=== PATIENT | female | born 1950 | race Caucasian/White ===

== ENCOUNTER → 2016-09-24 | Outpatient (CLI) | payer MEDICARE | LOC: WI 11:02 | PROVIDERS: ATTEND Nurse Practitioner | DX: Z12.31 Encounter for screening mammogram for malignant neoplasm of breast (principal) | CPT/HCPCS: 77063; G0202; 77067 ==

== ENCOUNTER → 2018-03-26 | Outpatient (CLI) | payer MEDICARE ==
--- NOTE | 2018-03-26 09:09 | WOMENS IMAGING REPORT ---
EXAM DESCRIPTION: 3D SCREENING MAMMO BILAT COMPLETED DATE/TIME: 03/26/2018 8:31 am REASON FOR STUDY: BIALTERAL SCREENING MAMMO 3D/Z12.31 Z12.31 ENCNTR SCREEN MAMMOGRAM FOR MALIGNANT NEOPLASM OF MALIK COMPARISON: 2016 TECHNIQUE: Standard craniocaudal and mediolateral oblique views of each breast recorded using digita l acquisition and breast tomosynthesis. LIMITATIONS: None. FINDINGS: No masses, calcifications or architectural distortion. No areas of suspicion. Read with the assistance of CAD. .[facility] - R2 Cenova Version 1.3 .[facility] - R2 Cenova Version 1.3 .[facility] - R2 Cenova Version 2.4 .[facility] [place] - R2 Cenova Version 2.4 .[facility] - R2 Receivable Executive Version 9.2 IMPRESSION: NORMAL MAMMOGRAM. BIRADS 1. BREAST DENSITY: b. There are scattered areas of fibroglandular density. BIRAD: 1 NEGATIVE RECOMMENDATION: ROUTINE SCREENING COMMENT: The patient has been notified of the results by letter per SA requirements. Additional no tification policies are in place for contacting patient with suspicious or incomplete findings. Quality ID #[id number]: The [employer] recommends an annual screening mammogram for women aged 40 years or over. This facility utilizes a reminder system to ensure that all patients receive reminder letters, and/or direct phone calls for appointments. This includes reminders for routine scr eening mammograms, diagnostic mammograms, or other Breast Imaging Interventions when appropriate. Th is patient will be placed in the appropriate reminder system. The [employer] (ACR) has developed recommendations for screening MRI of the breast s in certain patient populations, to be used in conjunction with mammography. Breast MRI surveillanc e may be appropriate for women with more than 20% lifetime risk of developing breast cancer as deter mined by genetic testing, significant family history of the disease, or history of mantle radiation f or Hodgkins Disease. ACR Practice Guidelines 2008. DBT Technology DBT is a type of tomographic mammography. With conventional mammography, overlapping breast tissue ma y make lesions difficult to detect, even with good compression. DBT uses an x-ray tube that rotates a round the breast, taking images at different angles. These images are then combined to create thin sl ices of the breast that the radiologist can view as a 3D reconstruction. The Home Delivery Service (HDS) unit can perform full-field digital mammograms (2D imaging); or DBT (3D imaging); or both, in a combination mode that quickly performs both the mammogram and the tomosynthesis scan while the breast is still compressed. PQRS 6045F: Fluoroscopic imaging is not utilized for breast tomosynthesis. TECHNICAL DOCUMENTATION: FINDING NUMBER: (1) ASSESSMENT: (1) JOB ID: [id number] [employer]- All Rights Reserved Reading location - IP/workstation name: [facility]
== END ==
LOC: WI 07:53
PROVIDERS: ATTEND Nurse Practitioner
DX: Z12.31 Encounter for screening mammogram for malignant neoplasm of breast (principal)
CPT/HCPCS: 77063; 77067

== ENCOUNTER 2018-05-14 11:46 | Observation (INO) | payer MEDICARE ==
[2018-05-14] MEDS ORDERED: MECLIZINE HCL 25 MG TABLET PO ONE (12:13)
[2018-05-14 12:15] LABS: ABSOLUTE BASOPHILS # (AUTO) 0.1 10^3/uL (0.0-0.2); ABSOLUTE EOSINOPHILS # (AUTO) 0.2 10^3/uL (0.0-0.6); ABSOLUTE MONOCYTES (AUTO) 0.3 10^3/uL (0.1-1.4); ABSOLUTE NEUT (AUTO) 5.7 10^3/uL (1.7-8.2); EOSINOPHILS % (AUTO) 2.5 % (0-6); HEMATOCRIT 41.2 % (36.0-47.0); HEMOGLOBIN 14.3 g/dL (12.0-15.5); LYMPHOCYTES % (AUTO) 23.6 % (13-45); MEAN CORPUSCULAR HEMOGLOBIN 29.8 pg (27.0-33.4); MEAN CORPUSCULAR HGB CONC 34.6 g/dL (32.0-36.0); MEAN CORPUSCULAR VOLUME 86 fl (80-97); MONOCYTES % (AUTO) 3.4 % (3-13); PLATELET COUNT 209 10^3/uL (150-450); RED BLOOD COUNT 4.79 10^6/uL (3.72-5.28); RED CELL DISTRIBUTION WIDTH 13.7 % (11.5-14.0); SEGMENTED NEUTROPHILS % (AUTO) 69.5 % (42-78); TOTAL CELLS COUNTED % (AUTO) 100 %; WHITE BLOOD COUNT 8.3 10^3/uL (4.0-10.5)
[2018-05-14] MEDS ORDERED: ONDANSETRON HCL INJ/PF 4 MG/2 ML SDV IV ONE (12:18)
--- NOTE | 2018-05-14 12:18 | ER Document Report ---
ED General - General Stated Complaint: DIZZY Time Seen by Provider: 05/14/18 12:00 Notes: Patient says that she had a routine blood draw this morning for a six-month checkup and following that she left a friend's house about [address] about 10 minutes home. On the way home, she began to feel "hot". Then, as she arrived home and was getting out of the car, she began to feel nauseated and dizzy and lightheaded. Never had any headache. Did not have any chest pain at that time. She felt as if she was staggering and off balance and had to catch herself, but she did not fall. Called EMS who gave the patient 4 mg of Zofran IV. On the way here in EMS, patient says she began to develop some chest "tightness" and feeling "funny" in the front of the chest. Has not been sick recently. Roby normal last night. No history of any heart disease. TRAVEL OUTSIDE OF THE [place] IN LAST 30 DAYS: No - Related Data Allergies/Adverse Reactions: No Known Allergies Allergy (Verified 05/14/18 14:47) Past Medical History - Social History Smoking Status: Current Every Day Smoker - 1/2 pack/day Family History: Reviewed & Not Pertinent - Past Medical History Cardiac Medical History: Reports: Hx Hypertension Denies: Hx Coronary Artery Disease Pulmonary Medical History: Reports: Hx COPD Neurological Medical History: Denies: Hx Cerebrovascular Accident Endocrine Medical History: Denies: Hx Diabetes Mellitus Type 1, Hx Diabetes Mellitus Type 2 Psychiatric Medical History: Reports: None Past Surgical History: Reports: Hx Tubal Ligation - Immunizations Hx Diphtheria, Pertussis, Tetanus Vaccination: No Review of Systems - Review of Systems Notes: REVIEW OF SYSTEMS: CONSTITUTIONAL : Denies fever. EENT: Denies eye, ear, nose or mouth or throat pain or other symptoms. CARDIOVASCULAR: Denies chest pain, but see HPI. RESPIRATORY: Denies cough, chest congestion, or shortness of breath. GASTROINTESTINAL: Denies abdominal pain but does have nausea, vomiting, no diarrhea GENITOURINARY: Denies difficulty or painful urinating, urinary frequency, blood in urine. MUSCULOSKELETAL: Denies back or neck pain. Denies joint pain or swelling. SKIN: Denies rash or skin lesions. NEUROLOGICAL: Denies LOC or altered mental status. Denies headache. Denies sensory loss or motor deficits. See HPI. ALL OTHER SYSTEMS REVIEWED AND NEGATIVE. Physical Exam - Vital signs Vitals: Pulse Ox 96 05/14/18 12:14 Interpretation: Normal - Notes Notes: PHYSICAL EXAMINATION: GENERAL: Well-appearing, in no acute distress. HEAD: Atraumatic, normocephalic. EYES: Pupils equal round and reactive to light, extraocular movements intact. No nystagmus. ENT: oropharynx clear without exudates. Moist mucous membranes. NECK: Normal range of motion, supple. No carotid bruits heard. LUNGS: Breath sounds clear and equal bilaterally. HEART: Regular rate and rhythm without murmurs. ABDOMEN: Soft, nontender. No guarding or rebound. No masses. BACK: No tenderness throughout entire back. EXTREMITIES: Normal range of motion without pain. NEUROLOGICAL: Normal speech, when patient was set up to get into a hospital gown, she began to vomit. Normal sensory, motor, and reflex exams. Awake, alert, and oriented x3. Cranial nerves normal. No facial asymmetry. PSYCH: Normal mood, normal affect. SKIN: Warm, dry, no rashes. Course - Re-evaluation Re-evalutation: 05/14/18 15:30 We got the patient up and have her ambulate to the restroom and obtain a urine specimen. She returned to bed without help. However, she says she is extremely dizzy when she tries to move her head or get up and walk. Does not have any headache. Does not have any chest tightness anymore. Discussed the results of her workup with the patient and she expressed apprehension and concern about going home and being alone tonight. I think she merits observation at least for overnight for possible undetected stroke or cardiac event. I am repeating her troponin and EKG at this time. I have spoken with the hospitalist who will admit the patient for further evaluation. - Vital Signs Vital signs: Temp Pulse Resp BP Pulse Ox 62 20 135/77 H 96 05/14/18 15:12 05/14/18 15:26 05/14/18 15:26 05/14/18 15:26 - Laboratory Result Diagrams: 05/14/18 11:15 05/14/18 11:15 Laboratory results interpreted by me: 05/14/18 11:15 Glucose 168 H - Diagnostic Test Radiology reviewed: Image reviewed, Reports reviewed - CT scan of the brain is normal. No evidence of stroke. - EKG Interpretation by Me EKG shows normal: Sinus rhythm Rate: Normal Rhythm: NSR Additional EKG results interpreted by me: 05/14/18 15:30 EKG shows some nonspecific ST, T abnormalities of the anterior leads. No STEMI. Discharge - Discharge Clinical Impression: Dizziness, Vertigo, Nausea and vomiting, TIA (transient ischemic attack) Condition: Stable Disposition: ADMITTED OBSERVATION Admitting Provider: Hospitalist Unit Admitted: IMCU Referrals: HANK PUENTES FNP [Primary Care Provider] - Follow up as needed
[2018-05-14 12:36] LABS: ALANINE AMINOTRANSFERASE 25 U/L (9-52); ALBUMIN 4.3 g/dL (3.5-5.0); ALKALINE PHOSPHATASE 92 U/L (38-126); ANION GAP 10 (5-19); ASPARTATE AMINO TRANSFERASE 17 U/L (14-36); BILIRUBIN,DIRECT 0.2 mg/dL (0.0-0.4); BILIRUBIN,TOTAL 0.8 mg/dL (0.2-1.3); BLOOD UREA NITROGEN 18 mg/dL (7-20); CALCIUM 9.3 mg/dL (8.4-10.2); CARBON DIOXIDE 28 mmol/L (22-30); CHLORIDE 102 mmol/L (98-107); CREATINE KINASE 41 U/L (30-135); GLUCOSE 168 mg/dL (75-110); POTASSIUM 3.7 mmol/L (3.6-5.0); SODIUM 140.1 mmol/L (137-145); TOTAL PROTEIN 7.2 g/dL (6.3-8.2)
[2018-05-14 12:49] LABS: CREATINE KINASE MB 0.68 ng/mL (<4.55); TROPONIN I < 0.012 ng/mL
--- NOTE | 2018-05-14 13:30 | RADIOLOGY REPORT (SQ) ---
EXAM DESCRIPTION: CT HEAD WITHOUT COMPLETED DATE/TIME: 05/14/2018 1:22 pm REASON FOR STUDY: Dizzy, off balance, nausea and vomiting COMPARISON: None. TECHNIQUE: Axial images acquired through the brain without intravenous contrast. Images reviewed wi th bone, brain and subdural windows. Additional sagittal and coronal reconstructions were generated. Images stored on PACS. All CT scanners at this facility use dose modulation, iterative reconstruction, and/or weight based d osing when appropriate to reduce radiation dose to as low as reasonably achievable (ALARA). [facility]: Dose Right [facility]: CareDose [facility]: Dose Right [facility]: Teradose 4D [facility]: Smart Shareholder InSite RADIATION DOSE: CT Rad equipment meets quality standard of care and radiation dose reduction techniq ues were employed. CTDIvol: 53.2 mGy. DLP: 1017 mGy-cm. mGy. LIMITATIONS: None. FINDINGS: VENTRICLES: Normal size and contour. CEREBRUM: No masses. No hemorrhage. No midline shift. No evidence for acute infarction. Normal gra y/white matter differentiation. No areas of low density in the white matter. CEREBELLUM: No masses. No hemorrhage. No alteration of density. No evidence for acute infarction. EXTRAAXIAL SPACES: No fluid collections. No masses. ORBITS AND GLOBE: No intra- or extraconal masses. Normal contour of globe without masses. CALVARIUM: No fracture. PARANASAL SINUSES: No fluid or mucosal thickening. SOFT TISSUES: No mass or hematoma. OTHER: No other significant finding. IMPRESSION: No acute intracranial pathology. EVIDENCE OF ACUTE STROKE: NO. COMMENT: Quality ID # 436: Final reports with documentation of one or more dose reduction techniques (e.g., Automated exposure control, adjustment of the mA and/or kV according to patient size, use of iterative reconstruction technique) TECHNICAL DOCUMENTATION: JOB ID: [id number] [employer]- All Rights Reserved Reading location - IP/workstation name: [email or web address]
[2018-05-14 15:13] LABS: APPEARANCE,URINE CLEAR; BILIRUBIN,URINE NEGATIVE (NEGATIVE); COLOR,URINE YELLOW; GLUCOSE, URINE NEGATIVE (NEGATIVE); KETONES,URINE NEGATIVE (NEGATIVE); LEUKOCYTE ESTERASE,URINE NEGATIVE (NEGATIVE); NITRITE,URINE NEGATIVE (NEGATIVE); PROTEIN,URINE NEGATIVE (NEGATIVE); URINE SPECIFIC GRAVITY 1.014; UROBILINOGEN,URINE NEGATIVE mg/dL (<2.0)
[2018-05-14] MEDS ORDERED: TRAMADOL HCL 50 MG TABLET PO PRN (16:18)
[2018-05-14] MEDS ORDERED: TEMAZEPAM 15 MG CAPSULE PO PRN (16:26)
[2018-05-14] MEDS ORDERED: DOCUSATE SODIUM 100 MG CAPSULE PO PRN (16:26)
[2018-05-14] MEDS ORDERED: ONDANSETRON HCL INJ/PF 4 MG/2 ML SDV IV PRN (16:26)
[2018-05-14] MEDS ORDERED: MAGNESIUM HYDROXIDE SUSP 30 ML UDCUP PO PRN (16:26)
[2018-05-14] MEDS ORDERED: ACETAMINOPHEN 325 MG TABLET PO PRN (16:26)
[2018-05-14] MEDS ORDERED: DIAZEPAM 5 MG TABLET PO PRN (16:27)
[2018-05-14] MEDS ORDERED: MECLIZINE HCL 25 MG TABLET PO PRN (16:27)
[2018-05-14] MEDS ORDERED: NICOTINE 14 MG/24 HR PATCH.TD24 TD PRN (16:49)
[2018-05-14] MEDS ORDERED: IPRATROPIUM/ALBUTEROL 0.5-2.5 MG/3 ML AMPUL NEB PRN (16:49)
--- NOTE | 2018-05-14 16:50 | PDOC H&P ---
History of Present Illness Admission Date/PCP: PADMINI BOWLING Patient complains of: dizziness History of Present Illness: ROVERTO JOEL is a 68 year old female with a past medical history of hypertension, COPD, and tobacco abuse with continuous use. The patient presented to the emergency department today via EMS with a complaint of sudden onset dizziness associated with nausea and vomiting x1. The patient had been fasting today for lab work at her primary care providers. She reports that after her appointment , she went to family members house where she became flushed and nauseated. She decided to drive home but during her drive home became dizzy. When she arrived home, she experienced near syncope when standing up associated with nausea and emesis x1. She states that she sat down and kept her eyes closed with slight improvement in her dizziness but continued to feel ill and therefore called EMS. The patient has been provided Zofran and meclizine with improvement in her symptoms. She reports that she continues to feel lightheaded and dizzy when standing, but otherwise is no longer having vertigo. She does complain of slight nausea while at rest, though this is also improved. She denies recent illnesses, fever, chills, chest pain, palpitations, and focal deficits. Evaluation in the emergency department is unremarkable with a normal laboratory evaluation, negative troponins x2, EKG demonstrating normal sinus rhythm, and normal head CT. The patient was referred to the hospitalist service for admission and management of the above stated complaints. Past Medical History Cardiac Medical History: Reports: Hyperlipidema, Hypertension Denies: Coronary Artery Disease, Myocardial Infarction Pulmonary Medical History: Reports: Chronic Obstructive Pulmonary Disease (COPD) EENT Medical History: Reports: None Endocrine Medical History: Reports: Obesity Denies: Diabetes Mellitus Type 1, Diabetes Mellitus Type 2, Hypothyroidism Renal/ Medical History: Reports: None Malignancy Medical History: Reports: None GI Medical History: Reports: None Musculoskeltal Medical History: Reports: None Skin Medical History: Reports: None Psychiatric Medical History: Reports: Tobacco Dependency Traumatic Medical History: Reports: None Hematology: Reports: None Infectious Medical History: Reports: None Past Surgical History Past Surgical History: Reports: Tubal Ligation Social History Information Source: Patient Lives with: Alone Smoking Status: Current Every Day Smoker Cigarettes Packs Per Day: 0.5 Number of Years Smokin Frequency of Alcohol Use: None Hx Recreational Drug Use: No Hx Prescription Drug Abuse: No - Advance Directive Resuscitation Status: Full Code Surrogate healthcare decision maker:: The patient's niece, Jamee Del Valle, Family History Family History: CAD, CVA, DM, Hyperlipidemia, Hypertension, Malignancy, Thyroid Disfunction Parental Family History Reviewed: Yes Children Family History Reviewed: Yes Sibling(s) Family History Reviewed.: Yes Medication/Allergy Home Medications: Albuterol Sulfate [Proair Hfa Inhalation Aerosol 8.5 gm Mdi] 2 puff IH Q6HP PRN 05/14/18 Amlodipine Besylate [Norvasc 5 mg Tablet] 5 mg PO DAILY 05/14/18 Aspirin [Ecotrin 81 mg EC Tablet] 81 mg PO DAILY 05/14/18 Atenolol [Tenormin 50 mg Tablet] 50 mg PO BID 05/14/18 Fluticasone/Salmeterol [Advair 250-50 Diskus 14 Dose/Diskus] 1 inh IH Q12 Losartan/Hydrochlorothiazide [Losartan-Hctz 100-25 mg Tab] 1 each PO DAILY 05/14 Meloxicam [Mobic] 15 mg PO DAILY 05/14/18 Tiotropium Caputa [Spiriva Handihaler 5 Cap/Kit (18 Mcg/Cap)] 2 cap IH DAILY Allergies/Adverse Reactions: No Known Allergies Allergy (Verified 05/14/18 14:47) Review of Systems Constitutional: ABSENT: chills, fever(s), headache(s), weight gain, weight loss Eyes: ABSENT: visual disturbances Ears: ABSENT: hearing changes Cardiovascular: ABSENT: chest pain, dyspnea on exertion, edema, orthropnea, palpitations Respiratory: ABSENT: cough, hemoptysis Gastrointestinal: PRESENT: nausea, vomiting. ABSENT: abdominal pain, constipation, diarrhea, hematemesis, hematochezia Genitourinary: ABSENT: dysuria, hematuria Musculoskeletal: ABSENT: joint swelling Integumentary: ABSENT: rash, wounds Neurological: PRESENT: dizziness, vertigo. ABSENT: abnormal gait, abnormal speech, confusion, focal weakness, syncope Psychiatric: ABSENT: anxiety, depression, homidical ideation, suicidal ideation Endocrine: ABSENT: cold intolerance, heat intolerance, polydipsia, polyuria Hematologic/Lymphatic: ABSENT: easy bleeding, easy bruising Physical Exam Vital Signs: Temp Pulse Resp BP Pulse Ox 62 20 146/78 H 96 1206/18 15:12 05/14/18 16:07 05/14/18 16:07 05/14/18 16:07 Intake & Output 05/13/18 05/14/18 05/15/18 06:59 06:59 06:59 Weight 102.058 kg General appearance: PRESENT: no acute distress, cooperative, well-developed, well-nourished - Overweight Head exam: PRESENT: atraumatic, normocephalic Eye exam: PRESENT: conjunctiva pink, EOMI, PERRLA. ABSENT: nystagmus, scleral icterus Ear exam: PRESENT: normal external ear exam Mouth exam: PRESENT: moist, tongue midline Neck exam: ABSENT: carotid bruit, JVD, lymphadenopathy, thyromegaly Respiratory exam: PRESENT: clear to auscultation nathalie, symmetrical, unlabored. ABSENT: rales, rhonchi, wheezes Cardiovascular exam: PRESENT: RRR, +S2. ABSENT: diastolic murmur, rubs, systolic murmur Pulses: PRESENT: normal dorsalis pedis pul Vascular exam: PRESENT: normal capillary refill GI/Abdominal exam: PRESENT: normal bowel sounds, soft. ABSENT: distended, guarding, mass, organolmegaly, rebound, tenderness Rectal exam: PRESENT: deferred Extremities exam: PRESENT: full ROM. ABSENT: calf tenderness, clubbing, pedal edema Neurological exam: PRESENT: alert, awake, oriented to person, oriented to place , oriented to time, oriented to situation, reflexes normal, CN II-XII grossly intact. ABSENT: motor sensory deficit Psychiatric exam: PRESENT: appropriate affect, normal mood. ABSENT: homicidal ideation, suicidal ideation Skin exam: PRESENT: dry, intact, warm. ABSENT: cyanosis, rash Results Laboratory Results: 05/14/18 11:15 05/14/18 11:15 05/14/18 05/14/18 05/14/18 11:15 11:15 14:57 WBC 8.3 RBC 4.79 Hgb 14.3 Hct 41.2 MCV 86 MCH 29.8 MCHC 34.6 RDW 13.7 Plt Count 209 Seg Neutrophils % 69.5 Lymphocytes % 23.6 Monocytes % 3.4 Eosinophils % 2.5 Basophils % 1.0 Absolute Neutrophils 5.7 Absolute Lymphocytes 2.0 Absolute Monocytes 0.3 Absolute Eosinophils 0.2 Absolute Basophils 0.1 Sodium 140.1 Potassium 3.7 Chloride 102 Carbon Dioxide 28 Anion Gap 10 BUN 18 Creatinine 0.72 Est GFR ( Amer) > 60 Est GFR (Non-Af Amer) > 60 Glucose 168 H Calcium 9.3 Total Bilirubin 0.8 AST 17 ALT 25 Alkaline Phosphatase 92 Total Protein 7.2 Albumin 4.3 Urine Color YELLOW Urine Appearance CLEAR Urine pH 7.0 Ur Specific [place] 1.014 Urine Protein NEGATIVE Urine Glucose (UA) NEGATIVE Urine Ketones NEGATIVE Urine Blood NEGATIVE Urine Nitrite NEGATIVE Ur Leukocyte Esterase NEGATIVE Urine WBC (Auto) 2 Urine RBC (Auto) 0 05/14/18 05/14/18 05/14/18 11:15 11:15 15:35 Creatine Kinase 41 CK-MB (CK-2) 0.68 Troponin I < 0.012 < 0.012 Impressions: Head CT 05/14/18 12:18 IMPRESSION: No acute intracranial pathology. EVIDENCE OF ACUTE STROKE: NO. Assessment & Plan - Diagnosis (1) Dizziness Is this a current diagnosis for this admission?: Yes Plan: The patient presented with sudden onset dizziness that worsens with movement/ standing and is associated with nausea and vomiting after fasting for routine lab work this morning. She has no focal deficits or facial asymmetry. EKG demonstrates normal sinus rhythm. Head CT is benign. Laboratory evaluation is unremarkable including troponins x2. Due to the patient's persistent symptoms following meclizine and Zofran, she was referred to the hospitalist service for admission and monitoring for TIA versus underlying cardiac causes. She is admitted to [facility] on continuous cardiac telemetry with TIA/CVA protocols in place. She is provided daily statin and aspirin therapy. We will obtain a carotid Doppler and echocardiogram. We will request lab work from her primary care's office as she had routine lab work done this morning (likely lipid panel, TSH, and A1c were assessed). PT evaluation. Will hold on brain MRI at this time; if vertigo persists, will obtain in the morning. Meclizine as needed, p.o. Valium for severe symptoms or symptoms unrelieved by meclizine. Gentle IV fluids. Antiemetics as needed. Fall precautions. (2) TIA (transient ischemic attack) Is this a current diagnosis for this admission?: Yes Plan: The patient has a benign exam (negative for dysdiadochokinesis and nml finger-to -nose; though with (+) Romberg) and unremarkable workup; her dizziness is likely vertigo related to her fasting for a labs. However, as her symptoms persist following p.o. intake, anti-emetics, and meclizine, she will be monitored for symptoms of TIA/CVA (specifically Cerebellar). Plan as above. (3) Hypertension Is this a current diagnosis for this admission?: Yes Plan: Normotensive at present; the patient's home medication regimen will be continued once reconciled. We will obtain orthostatic blood pressures. (4) COPD (chronic obstructive pulmonary disease) Is this a current diagnosis for this admission?: Yes Plan: Without exacerbation; will resume the patient's home dose Advair once reconciled. Supplemental oxygen as needed to maintain saturations greater than 89%. As needed nebulizer treatments. (5) Tobacco dependence Is this a current diagnosis for this admission?: Yes Plan: Smoking cessation is encouraged; nicotine replacement therapies are provided. (6) Nausea and vomiting Qualifiers: Vomiting Intractability: non-intractable Is this a current diagnosis for this admission?: Yes Plan: Secondary to #1; meclizine and/or Valium as needed for management of dizziness. Antiemetics as needed. Gentle IV fluids. - Time Time Spent: 50 to 70 Minutes Smoking Cessation Education: 3 to 10 minutes Medications reviewed and adjusted accordingly: Yes Anticipated discharge: Home Within: within 24 hours
[2018-05-14] MEDS: NORMAL SALINE 1000 ML 1,000 ML IV PRN (17:32)
[2018-05-14] MEDS ORDERED: ATENOLOL 50 MG TABLET PO SCH (18:00)
[2018-05-14] MEDS: FAMOTIDINE 20 MG TABLET PO SCH (21:48)
[2018-05-14] MEDS: HEPARIN SOD (PORCINE) 5,000 UNIT/ML 1 ML SYRINGE SUBCUT SCH (21:50)
[2018-05-14] MEDS ORDERED: ATORVASTATIN CALCIUM 80 MG TABLET PO SCH (22:00)
--- NOTE | 2018-05-14 22:38 | EKG REPORT ---
SEVERITY:- BORDERLINE ECG - SINUS RHYTHM BORDERLINE T ABNORMALITIES, ANT-LAT LEADS : Confirmed by: Perry Mendoza 14-May-2018 22:37:59
--- NOTE | 2018-05-14 22:38 | EKG REPORT ---
SEVERITY:- ABNORMAL ECG - SINUS RHYTHM NONSPECIFIC T ABNORMALITIES, ANT-LAT LEADS : Confirmed by: Perry Mendoza 14-May-2018 22:37:54
[2018-05-15] MEDS: HEPARIN SOD (PORCINE) 5,000 UNIT/ML 1 ML SYRINGE SUBCUT SCH ×2 (05:15→15:52)
[2018-05-15 06:14] LABS: HEMATOCRIT 39.1 % (36.0-47.0); HEMOGLOBIN 13.5 g/dL (12.0-15.5); MEAN CORPUSCULAR HEMOGLOBIN 29.5 pg (27.0-33.4); MEAN CORPUSCULAR HGB CONC 34.6 g/dL (32.0-36.0); MEAN CORPUSCULAR VOLUME 85 fl (80-97); PLATELET COUNT 203 10^3/uL (150-450); RED BLOOD COUNT 4.58 10^6/uL (3.72-5.28); RED CELL DISTRIBUTION WIDTH 13.3 % (11.5-14.0); WHITE BLOOD COUNT 7.7 10^3/uL (4.0-10.5)
[2018-05-15 06:34] LABS: ANION GAP 12 (5-19); BLOOD UREA NITROGEN 16 mg/dL (7-20); CARBON DIOXIDE 27 mmol/L (22-30); CHLORIDE 103 mmol/L (98-107); GLUCOSE 121 mg/dL (75-110); POTASSIUM 3.9 mmol/L (3.6-5.0); SODIUM 142.2 mmol/L (137-145)
--- NOTE | 2018-05-15 08:13 | RADIOLOGY REPORT (SQ) ---
EXAM DESCRIPTION: CAROTID DOPPLER COMPLETED DATE/TIME: 05/14/2018 8:44 pm REASON FOR STUDY: TIA, Vertigo COMPARISON: None. TECHNIQUE: Grayscale ultrasound, Doppler velocity and spectra, and color Doppler images acquired of the extra-cranial carotid and vertebral arteries. Images stored on PACS. LIMITATIONS: None. FINDINGS: RIGHT CAROTID CCA Velocities: Within normal limits. ICA Velocities Peak systolic 1.31 m/s. End diastolic 0.24 m/s. Proximal ICA/CCA peak systolic ratio 1.2. There is soft plaque in the carotid bulb. LEFT CAROTID CCA Velocities: Within normal limits. ICA Velocities Peak systolic 0.99 m/s. End diastolic 0.22 m/s. Proximal ICA/CCA peak systolic ratio 1.3. Spectra normal. No significant plaque. VERTEBRAL ARTERIES: Antegrade flow. Normal waveforms. SUBCLAVIAN ARTERIES: No finding. OTHER: No other significant finding. IMPRESSION: Soft plaque is noted in the right carotid bulb and proximal ICA. No hemodynamically sig nificant stenosis. COMMENT: Quality ID #[id number]: Velocity criteria are extrapolated from the diameter data as defined by t he Society of Radiologists in Ultrasound Consensus Conference. Radiology 2003: 229; 340-346. TECHNICAL DOCUMENTATION: JOB ID: [id number] [employer]- All Rights Reserved Reading location - IP/workstation name: [email or web address]
[2018-05-15] MEDS: NORMAL SALINE 1000 ML 1,000 ML IV PRN (09:47)
[2018-05-15] MEDS: FAMOTIDINE 20 MG TABLET PO SCH (09:47)
[2018-05-15] MEDS ORDERED: AMLODIPINE BESYLATE 5 MG TABLET PO SCH (10:00)
[2018-05-15] MEDS ORDERED: ASPIRIN 81 MG TABLET, ENT COATED PO SCH (10:00)
[2018-05-15] MEDS ORDERED: (PENDING PHARMACY ID) (Losartan/Hydrochlorothiazide [Losartan-Hctz 100-25 Mg Tab] 1 EACH) PO SCH (10:00)
--- NOTE | 2018-05-15 15:02 | RADIOLOGY REPORT (SQ) ---
EXAM DESCRIPTION: CTA NECK; CTA HEAD COMPLETED DATE/TIME: 05/15/2018 2:42 pm REASON FOR STUDY: dizziness, TIA/CVA work up COMPARISON: CT brain 05/14/2018 TECHNIQUE: Axial dynamic scanning technique with dynamic contrast enhancement through the extra-steam crane operator nial carotid and vertebral arteries. Multiplanar reconstruction. 3-D MIPS and Volume-rendered imag es acquired at the workstation and saved to PACS. Images are reviewed in soft tissue, bone, lung w indows. Axial dynamic scanning technique with dynamic contrast enhancement through the intra-cranial carotid and vertebral arteries. Multiplanar reconstruction. 3-D MIPS and Volume-rendered images acquired at the workstation and saved to PACS. Images are reviewed in soft tissue, bone, lung windows. All CT scanners at this facility use dose modulation, iterative reconstruction, and/or weight based d osing when appropriate to reduce radiation dose to as low as reasonably achievable (ALARA). [facility]: Dose Right [facility]: CareDose [facility]: Dose Right [facility]: Teradose 4D [facility]: [employer] CONTRAST TYPE AND DOSE: contrast/concentration: Isovue 350.00 mg/ml; Total Contrast Delivered: 80.0 ml; Total Saline Delivered: 75.0 ml RENAL FUNCTION: Creatinine 0.74 LIMITATIONS: None. FINDINGS: AORTIC ARCH: Origins of the brachiocephalic artery, left common carotid artery, left subcl reji artery and left vertebral artery off the aortic arch are widely patent. Bilateral subclavian a rteries are patent. No dissection. RIGHT CAROTIDS: Patent common carotid artery. Calcific plaque at the right carotid bifurcation with about 50% stenosis proximal right ICA best shown on coronal image 62 and sagittal reconstruction imag es 47-49. Cervical internal carotid artery widely patent. No dissection. RIGHT VERTEBRAL: Non dominant, origin not well seen. Remainder of the right vertebral artery is ng nt without dissection LEFT CAROTIDS: Patent common carotid artery. Calcific plaque at the left carotid bifurcation without flow significant stenosis. Left cervical internal carotid artery widely patent. No dissection LEFT VERTEBRAL: Patent. No dissection. NECK SOFT TISSUES: No other significant finding. No neck masses or adenopathy. Salivary and thyroid glands unremarkable. Incidental finding of high-grade right C3-4 foraminal narrowing from facet and uncovertebral hypertrophy. Obstructive lung disease at the [place] CTA: ANTERIOR CIRCULATION: No stenosis, vascular malformation, or aneurysm POSTERIOR CIRCULATION: No stenosis, vascular malformation or aneurysm BRAIN IN THE FIELD OF VIEW: Unremarkable. No masses or abnormal contrast enhancement. Ventricles e xtra-axial CSF spaces unremarkable OTHER FINDINGS: Paranasal sinuses are clear. OTHER: 3-D reconstructions confirm findings. IMPRESSION: No flow significant stenosis of the carotid bifurcations. No stenosis vascular malformation or aneurysm in the [place] COMMENT: Quality ID #[id number]: Measurements of distal internal carotid diameter were used as the denomina tor for stenosis measurement. TECHNICAL DOCUMENTATION: JOB ID: [id number] Quality ID # [id number]: Final reports with documentation of one or more dose reduction techniques (e.g., Au tomated exposure control, adjustment of the mA and/or kV according to patient size, use of iterative reconstruction technique) 2010 [employer]- All Rights Reserved Reading location - IP/workstation name: [email or web address]
--- NOTE | 2018-05-15 15:02 | RADIOLOGY REPORT (SQ) ---
EXAM DESCRIPTION: CTA NECK; CTA HEAD COMPLETED DATE/TIME: 05/15/2018 2:42 pm REASON FOR STUDY: dizziness, TIA/CVA work up COMPARISON: CT brain 05/14/2018 TECHNIQUE: Axial dynamic scanning technique with dynamic contrast enhancement through the extra-traveling crane operator nial carotid and vertebral arteries. Multiplanar reconstruction. 3-D MIPS and Volume-rendered imag es acquired at the workstation and saved to PACS. Images are reviewed in soft tissue, bone, lung w indows. Axial dynamic scanning technique with dynamic contrast enhancement through the intra-cranial carotid and vertebral arteries. Multiplanar reconstruction. 3-D MIPS and Volume-rendered images acquired at the workstation and saved to PACS. Images are reviewed in soft tissue, bone, lung windows. All CT scanners at this facility use dose modulation, iterative reconstruction, and/or weight based d osing when appropriate to reduce radiation dose to as low as reasonably achievable (ALARA). [facility]: Dose Right [facility]: CareDose [facility]: Dose Right [facility]: Teradose 4D [facility]: [employer] CONTRAST TYPE AND DOSE: contrast/concentration: Isovue 350.00 mg/ml; Total Contrast Delivered: 80.0 ml; Total Saline Delivered: 75.0 ml RENAL FUNCTION: Creatinine 0.74 LIMITATIONS: None. FINDINGS: AORTIC ARCH: Origins of the brachiocephalic artery, left common carotid artery, left subcl reji artery and left vertebral artery off the aortic arch are widely patent. Bilateral subclavian a rteries are patent. No dissection. RIGHT CAROTIDS: Patent common carotid artery. Calcific plaque at the right carotid bifurcation with about 50% stenosis proximal right ICA best shown on coronal image 62 and sagittal reconstruction imag es 47-49. Cervical internal carotid artery widely patent. No dissection. RIGHT VERTEBRAL: Non dominant, origin not well seen. Remainder of the right vertebral artery is ng nt without dissection LEFT CAROTIDS: Patent common carotid artery. Calcific plaque at the left carotid bifurcation without flow significant stenosis. Left cervical internal carotid artery widely patent. No dissection LEFT VERTEBRAL: Patent. No dissection. NECK SOFT TISSUES: No other significant finding. No neck masses or adenopathy. Salivary and thyroid glands unremarkable. Incidental finding of high-grade right C3-4 foraminal narrowing from facet and uncovertebral hypertrophy. Obstructive lung disease at the apices [place] CTA: ANTERIOR CIRCULATION: No stenosis, vascular malformation, or aneurysm POSTERIOR CIRCULATION: No stenosis, vascular malformation or aneurysm BRAIN IN THE FIELD OF VIEW: Unremarkable. No masses or abnormal contrast enhancement. Ventricles e xtra-axial CSF spaces unremarkable OTHER FINDINGS: Paranasal sinuses are clear. OTHER: 3-D reconstructions confirm findings. IMPRESSION: No flow significant stenosis of the carotid bifurcations. No stenosis vascular malformation or aneurysm in the [place] COMMENT: Quality ID #[id number]: Measurements of distal internal carotid diameter were used as the denomina tor for stenosis measurement. TECHNICAL DOCUMENTATION: JOB ID: [id number] Quality ID # 436: Final reports with documentation of one or more dose reduction techniques (e.g., Au tomated exposure control, adjustment of the mA and/or kV according to patient size, use of iterative reconstruction technique) 2010 [employer]- All Rights Reserved Reading location - IP/workstation name: [email or web address]
[2018-05-15 16:12] VITALS: BP 114/61
--- NOTE | 2018-05-16 16:10 | PDOC DISCHARGE SUMMARY ---
General - Admit/Disc Date/PCP Admission Date/Primary Care Provider: 05/14/18 16:41 HANK PUENTES, [employer] Discharge Date: 05/15/18 - Discharge Diagnosis (1) Dizziness Is this a current diagnosis for this admission?: Yes Summary: The patient presented with sudden onset dizziness that worsens with movement/ standing and is associated with nausea and vomiting after fasting for routine lab work. She has no focal deficits or facial asymmetry. EKG demonstrated normal sinus rhythm. Head CT is benign. Laboratory evaluation is unremarkable including troponins x2. Carotid Doppler noted a soft plaque to the right carotid bulb and proximal ICA without hemodynamically significant stenosis. Follow-up head and neck CTA revealed a calcified plaque at the right carotid bifurcation with about 50% stenosis proximal right ICA. No significant flow stenosis of the carotid bifurcations. No stenosis vascular malformations or aneurysm to the [place]. The patient was offered a MRI of the brain to further evaluate for CVA. She declined due to significant claustrophobia. The patient was admitted to [facility] on continuous cardiac telemetry with TIA/CVA protocols in place. She was provided daily statin and aspirin therapy. We received routine laboratory work from her primary care provider's office; acceptable chemistries, A1c, and lipid panel. Physical therapy met with the patient; no recommendations for further therapy. She was provided meclizine while in the emergency department for her dizziness; she did not require any further dosing. She reports that her symptoms resolved spontaneously overnight and on the morning of discharge felt back to her normal self. At time of discharge, the patient was in stable condition, asymptomatic, and ambulatory without assistance. She is encouraged to stop smoking. She is provided prescriptions for daily aspirin, Lipitor 20 mg daily, and NicoDerm patches. She is advised to keep her follow-up appointment already scheduled for her primary care provider's office next week. (2) TIA (transient ischemic attack) Is this a current diagnosis for this admission?: Yes Summary: The patient has a benign exam (negative for dysdiadochokinesis and nml finger-to -nose; though with (+) Romberg) and unremarkable workup; her dizziness is likely vertigo related to her fasting for a labs. She was admitted and monitored for TIA/CVA symptoms secondary to multiple risk factors: Age, obesity, hypertension, smoking. Fortunately, her workup was benign. She was educated on risk modification; discontinue smoking, take daily aspirin and statin therapy, begin a daily walking regiment for weight reduction. She was encouraged to follow-up with her primary care provider as already scheduled for next week. She is instructed to return to the emergency department for any concerning symptoms. (3) Hypertension Is this a current diagnosis for this admission?: Yes Summary: Normotensive on her outpatient regiment. (4) COPD (chronic obstructive pulmonary disease) Is this a current diagnosis for this admission?: Yes Summary: Without exacerbation. The patient's home dose of Advair was continued. (5) Tobacco dependence Is this a current diagnosis for this admission?: Yes Summary: Smoking cessation strongly encouraged; she was provided prescription for NicoDerm at discharge. (6) Nausea and vomiting Is this a current diagnosis for this admission?: Yes Summary: Resolved; secondary to #1. - Additional Information Resuscitation Status: Full Code Discharge Diet: Cardiac Discharge Activity: Activity As Tolerated, Balance Activity w/Rest, Slowly Increase Activity Prescriptions: Aspirin [Ecotrin 81 mg EC Tablet] 81 mg PO DAILY #90 tabec Atorvastatin Calcium [Lipitor 20 mg Tablet] 20 mg PO QHS #30 tablet Nicotine [Nicoderm 14 mg/24 Hr Transdermal Patch] 1 each TD DAILYP PRN #30 patch.td24 PRN Reason: Home Medications: Albuterol Sulfate [Proair HFA Inhalation Aerosol 8.5 gm MDI] 2 puff IH Q6HP PRN 05/14/18 Amlodipine Besylate [Norvasc 5 mg Tablet] 5 mg PO DAILY 05/14/18 Aspirin [Ecotrin 81 mg EC Tablet] 81 mg PO DAILY 05/14/18 Atenolol [Tenormin 50 mg Tablet] 50 mg PO Q12 05/14/18 Fluticasone/Salmeterol [Advair 250-50 Diskus 14 Dose/Diskus] 1 inh IH Q12 Losartan/Hydrochlorothiazide [Losartan-Hctz 100-25 mg Tab] 1 each PO DAILY 05/14 Tiotropium [place] [Spiriva Handihaler 5 Cap/Kit (18 Mcg/Cap)] 2 cap IH DAILY Aspirin [Ecotrin 81 mg EC Tablet] 81 mg PO DAILY #90 tabec 05/15/18 Atorvastatin Calcium [Lipitor 20 mg Tablet] 20 mg PO QHS #30 tablet 05/15/18 Nicotine [Nicoderm 14 mg/24 Hr Transdermal Patch] 1 each TD DAILYP PRN #30 patch.td24 05/15/18 History of Present Illness History of Present Illness: ROVERTO JOEL is a 68 year old female with a past medical history of hypertension, COPD, and tobacco abuse with continuous use. The patient presented to the emergency department today via EMS with a complaint of sudden onset dizziness associated with nausea and vomiting x1. The patient had been fasting today for lab work at her primary care providers. She reports that after her appointment , she went to family members house where she became flushed and nauseated. She decided to drive home but during her drive home became dizzy. When she arrived home, she experienced near syncope when standing up associated with nausea and emesis x1. She states that she sat down and kept her eyes closed with slight improvement in her dizziness but continued to feel ill and therefore called EMS. The patient has been provided Zofran and meclizine with improvement in her symptoms. She reports that she continues to feel lightheaded and dizzy when standing, but otherwise is no longer having vertigo. She does complain of slight nausea while at rest, though this is also improved. She denies recent illnesses, fever, chills, chest pain, palpitations, and focal deficits. Evaluation in the emergency department is unremarkable with a normal laboratory evaluation, negative troponins x2, EKG demonstrating normal sinus rhythm, and normal head CT. The patient was referred to the hospitalist service for admission and management of the above stated complaints. Physical Exam Vital Signs: Temp Pulse Resp BP Pulse Ox 97.8 F 74 15 114/61 93 05/15/18 16:10 05/15/18 16:10 05/15/18 16:10 05/15/18 16:10 05/15/18 16:10 Intake & Output 05/15/18 05/16/18 05/17/18 06:59 06:59 06:59 Intake Total 1236 892 Balance 1236 892 Weight 103.7 kg General appearance: PRESENT: no acute distress, well-developed, well-nourished - Overweight Head exam: PRESENT: atraumatic, normocephalic Eye exam: PRESENT: conjunctiva pink, EOMI, PERRLA. ABSENT: scleral icterus Ear exam: PRESENT: normal external ear exam Mouth exam: PRESENT: moist, tongue midline Neck exam: ABSENT: carotid bruit, JVD, lymphadenopathy, thyromegaly Respiratory exam: PRESENT: clear to auscultation nathalie. ABSENT: rales, rhonchi, wheezes Cardiovascular exam: PRESENT: RRR. ABSENT: diastolic murmur, rubs, systolic murmur Pulses: PRESENT: normal dorsalis pedis pul Vascular exam: PRESENT: normal capillary refill GI/Abdominal exam: PRESENT: normal bowel sounds, soft. ABSENT: distended, guarding, mass, organolmegaly, rebound, tenderness Rectal exam: PRESENT: deferred Extremities exam: PRESENT: full ROM. ABSENT: calf tenderness, clubbing, pedal edema Neurological exam: PRESENT: alert, awake, oriented to person, oriented to place , oriented to time, oriented to situation, reflexes normal, CN II-XII grossly intact - Negative Romberg, negative dysdiadochokinesis, normal finger to nose, normal gait. ABSENT: motor sensory deficit Psychiatric exam: PRESENT: appropriate affect, normal mood. ABSENT: homicidal ideation, suicidal ideation Skin exam: PRESENT: dry, intact, warm. ABSENT: cyanosis, rash Results Laboratory Results: 05/15/18 05:55 05/15/18 05:55 Impressions: Head CT 05/14/18 12:18 IMPRESSION: No acute intracranial pathology. EVIDENCE OF ACUTE STROKE: NO. Carotid Doppler Study 05/14/18 16:25 IMPRESSION: Soft plaque is noted in the right carotid bulb and proximal ICA. No hemodynamically significant stenosis. Head CTA 05/15/18 00:00 IMPRESSION: No flow significant stenosis of the carotid bifurcations. No stenosis vascular malformation or aneurysm in the [place] CTA 05/15/18 00:00 IMPRESSION: No flow significant stenosis of the carotid bifurcations. No stenosis vascular malformation or aneurysm in the [place] Qualifiers - * PATIENT BEING DISCHARGED WITH ANY OF THE FOLLOWING DIAGNOSIS: No Plan Discharge Plan: Discharged home with self-care. Daily aspirin and statin therapy. Follow-up with primary care provider within 1 week. Return to the emergency department as needed for concerning symptoms. Time Spent: Less than 30 Minutes
== END 2018-05-15 16:37 | disposition home or self-care (01) ==
LOC: ER 11:46 → EH 16:41 → 3S 18:06
PROVIDERS: ADMIT Hospitalist; ATTEND Hospitalist
PROC: HZ31ZZZ Individual Counseling for Substance Abuse Treatment, Behavioral (ICD-10-PCS; principal; 2018-05-14)
PROC: 3E02340 Introduction of Influenza Vaccine into Muscle, Percutaneous Approach (ICD-10-PCS; 2018-05-15)
DX: R42 Dizziness and giddiness (principal); R11.2 Nausea with vomiting, unspecified; I65.21 Occlusion and stenosis of right carotid artery; Z53.29 Procedure and treatment not carried out because of patient's decision for other reasons; F40.240 Claustrophobia; G45.9 Transient cerebral ischemic attack, unspecified; I10 Essential (primary) hypertension; J44.9 Chronic obstructive pulmonary disease, unspecified; E66.3 Overweight; R07.89 Other chest pain; F17.210 Nicotine dependence, cigarettes, uncomplicated; Z79.82 Long term (current) use of aspirin; Z79.899 Other long term (current) drug therapy; Z82.49 Family history of ischemic heart disease and other diseases of the circulatory system; Z82.3 Family history of stroke; Z23 Encounter for immunization; Z98.51 Tubal ligation status
CPT/HCPCS: 93005; 99285; 96374; 36415 ×2; 82553; 82550; 85025; 85027; 80048; 80053; 81001; 84484; 93880; 70450; 70496; 70498; 90686; 93010; 97116; 97162; 99406; G0378 ×3; J1644 ×2; A9270 ×5; J2405; J7030 ×2; G8978; G8979; G8980

== ENCOUNTER 2018-07-11 09:08 | Emergency (ER) | payer MEDICARE ==
[2018-07-11] MEDS ORDERED: IPRATROPIUM/ALBUTEROL 0.5-2.5 MG/3 ML AMPUL NEB ONE (09:26)
[2018-07-11] MEDS ORDERED: METHYLPREDNISOLONE INJ 125 MG/2 ML SDV IV ONE (09:26)
[2018-07-11] MEDS ORDERED: MAGNESIUM SULFATE/D5W 1 GM/100 ML RTUPB IV ONE (09:27)
--- NOTE | 2018-07-11 09:28 | ER Document Report ---
ED Medical Screen (RME) - General Chief Complaint: Cough Stated Complaint: COUGH Time Seen by Provider: 07/11/18 09:23 Primary Care Provider: HANK PUENTES FNP [Primary Care Provider] - Follow up as needed TRAVEL OUTSIDE OF THE [place] IN LAST 30 DAYS: No - HPI Notes: 07/11/18 09:27 COPD or shortness of breath cough continues to smoke ongoing for approximately 1 week - Related Data Allergies/Adverse Reactions: No Known Allergies Allergy (Verified 07/11/18 09:09) Past Medical History - Past Medical History Cardiac Medical History: Reports: Hx Hypercholesterolemia, Hx Hypertension Denies: Hx Coronary Artery Disease, Hx Heart Attack Pulmonary Medical History: Reports: Hx COPD Neurological Medical History: Denies: Hx Cerebrovascular Accident Endocrine Medical History: Denies: Hx Diabetes Mellitus Type 1, Hx Diabetes Mellitus Type 2, Hx Hypothyroidism Renal/ Medical History: Denies: Hx Peritoneal Dialysis Past Surgical History: Reports: Hx Tubal Ligation - Immunizations Hx Diphtheria, Pertussis, Tetanus Vaccination: No Review of Systems - Review of Systems Respiratory: Cough, Short of breath Physical Exam - Vital signs Vitals: Temp Pulse Resp BP Pulse Ox 98.0 F 60 16 138/74 H 93 07/11/18 09:11 07/11/18 09:11 07/11/18 09:11 07/11/18 09:11 07/11/18 09:11 - Respiratory Breath sounds: Wheezing Course - Vital Signs Vital signs: Temp Pulse Resp BP Pulse Ox 98.0 F 60 16 138/74 H 93 07/11/18 09:11 07/11/18 09:11 07/11/18 09:11 07/11/18 09:11 07/11/18 09:11 Doctor's Discharge - Discharge Referrals: HANK PUENTES FNP [Primary Care Provider] - Follow up as needed
[2018-07-11 10:08] LABS: ABSOLUTE EOSINOPHILS # (AUTO) 0.2 10^3/uL (0.0-0.6); ABSOLUTE MONOCYTES (AUTO) 0.5 10^3/uL (0.1-1.4); ABSOLUTE NEUT (AUTO) 6.7 10^3/uL (1.7-8.2); BASOPHILS % (AUTO) 0.4 % (0-2); EOSINOPHILS % (AUTO) 1.9 % (0-6); HEMATOCRIT 40.9 % (36.0-47.0); HEMOGLOBIN 13.9 g/dL (12.0-15.5); LYMPHOCYTES % (AUTO) 21.1 % (13-45); MEAN CORPUSCULAR HEMOGLOBIN 29.3 pg (27.0-33.4); MEAN CORPUSCULAR VOLUME 86 fl (80-97); PLATELET COUNT 247 10^3/uL (150-450); RED BLOOD COUNT 4.74 10^6/uL (3.72-5.28); RED CELL DISTRIBUTION WIDTH 13.5 % (11.5-14.0); SEGMENTED NEUTROPHILS % (AUTO) 71.6 % (42-78); TOTAL CELLS COUNTED % (AUTO) 100 %; WHITE BLOOD COUNT 9.4 10^3/uL (4.0-10.5)
[2018-07-11 10:30] LABS: ALANINE AMINOTRANSFERASE 24 U/L (9-52); ALBUMIN 4.3 g/dL (3.5-5.0); ALKALINE PHOSPHATASE 92 U/L (38-126); ANION GAP 11 (5-19); ASPARTATE AMINO TRANSFERASE 15 U/L (14-36); BILIRUBIN,DIRECT 0.1 mg/dL (0.0-0.4); BILIRUBIN,TOTAL 0.9 mg/dL (0.2-1.3); BLOOD UREA NITROGEN 19 mg/dL (7-20); CALCIUM 9.4 mg/dL (8.4-10.2); CARBON DIOXIDE 34 mmol/L (22-30); CHLORIDE 97 mmol/L (98-107); CREATINE KINASE 49 U/L (30-135); GLUCOSE 127 mg/dL (75-110); POTASSIUM 4.6 mmol/L (3.6-5.0); TOTAL PROTEIN 7.1 g/dL (6.3-8.2)
[2018-07-11 10:40] LABS: CREATINE KINASE MB 0.78 ng/mL (<4.55)
[2018-07-11 10:42] LABS: TROPONIN I < 0.012 ng/mL
[2018-07-11] MEDS ORDERED: ALBUTEROL SULFATE 0.083% NEB 2.5 MG/3 ML AMPUL NEB ONE (10:54)
--- NOTE | 2018-07-11 11:02 | RADIOLOGY REPORT (SQ) ---
EXAM DESCRIPTION: CHEST 2 VIEWS COMPLETED DATE/TIME: 07/11/2018 10:54 am REASON FOR STUDY: cough COMPARISON: 06/01/2011 EXAM PARAMETERS: NUMBER OF VIEWS: two views TECHNIQUE: Digital Frontal and Lateral radiographic views of the chest acquired. RADIATION DOSE: NA LIMITATIONS: none FINDINGS: LUNGS AND PLEURA: No opacities, masses or pneumothorax. No pleural effusion. MEDIASTINUM AND HILAR STRUCTURES: No masses or contour abnormalities. HEART AND VASCULAR STRUCTURES: Heart normal size. No evidence for failure. BONES: No acute findings. HARDWARE: None in the chest. OTHER: No other significant finding. IMPRESSION: NO ACUTE RADIOGRAPHIC FINDING IN THE CHEST. TECHNICAL DOCUMENTATION: JOB ID: [id number] [employer]- All Rights Reserved Reading location - IP/workstation name: [email or web address]
[2018-07-11] MEDS ORDERED: PREDNISONE 20 MG TABLET PO ONE (12:08)
[2018-07-11] MEDS ORDERED: DOXYCYCLINE HYCLATE 100 MG TABLET PO ONE (12:08)
[2018-07-11 12:23] VITALS: BP 127/65
--- NOTE | 2018-07-11 15:26 | ER Document Report ---
Entered by LENNY JIMENEZ SCRIBE 07/11/18 1023 Acting as scribe for:HANNAH MENESES MD ED General - General Chief Complaint: Cough Stated Complaint: COUGH Time Seen by Provider: 07/11/18 09:23 Primary Care Provider: HANK PUENTES FNP [Primary Care Provider] - Follow up as needed Mode of Arrival: Ambulatory Information source: Patient Notes: Patient is a 68 year old female with HTN, hyperlipidemia, COPD, and a history of a TIA presents to the emergency department complaining of shortness of breath and wheezing. Patient states she developed a cough 6 days ago and attributed it to a head cold and began to take OTC medications. Patient states over the week her cough worsened and she developed shortness of breath this morning. Patient states she has Advair at home but states it is not helping. Patient denies oxygen use at home. She states she received the flu shot this year but is unsure if she received pneumovax. She states she was recently admitted to the hospital in 2017 for a TIA. Patient's PCP is PADMINI Sheehan. TRAVEL OUTSIDE OF THE [place] IN LAST 30 DAYS: No - Related Data Allergies/Adverse Reactions: No Known Allergies Allergy (Verified 07/11/18 09:09) Past Medical History - General Information source: Patient - Social History Smoking Status: Current Every Day Smoker Chew tobacco use (# tins/day): No Frequency of alcohol use: None Drug Abuse: None Family History: Reviewed & Not Pertinent Patient has suicidal ideation: No Patient has homicidal ideation: No - Past Medical History Cardiac Medical History: Reports: Hx Hypercholesterolemia, Hx Hypertension Pulmonary Medical History: Reports: Hx COPD Past Surgical History: Reports: Hx Tubal Ligation - Immunizations Hx Diphtheria, Pertussis, Tetanus Vaccination: No Review of Systems - Review of Systems Constitutional: No symptoms reported EENT: No symptoms reported Cardiovascular: No symptoms reported Respiratory: See HPI Gastrointestinal: No symptoms reported Genitourinary: No symptoms reported Female Genitourinary: No symptoms reported Musculoskeletal: No symptoms reported Skin: No symptoms reported Hematologic/Lymphatic: No symptoms reported Neurological/Psychological: No symptoms reported -: Yes All other systems reviewed and negative Physical Exam - Vital signs Vitals: Temp Pulse Resp BP Pulse Ox 98.0 F 60 16 138/74 H 93 07/11/18 09:11 07/11/18 09:11 07/11/18 09:11 07/11/18 09:11 07/11/18 09:11 - Notes Notes: GENERAL: Alert, interacts well. No acute distress. HEAD: Normocephalic, atraumatic. EYES: Pupils equal, round, and reactive to light. Extraocular movements intact. ENT: Oral mucosa moist, tongue midline. NECK: Full range of motion. Supple. Trachea midline. LUNGS: Tachypneic. Retractions. Wheezes and rhonchi. HEART: Regular rate and rhythm. No murmurs, gallops, or rubs. ABDOMEN: Soft, non-tender. Non-distended. Bowel sounds present in all 4 quadrants. EXTREMITIES: Moves all 4 extremities spontaneously. NEUROLOGICAL: Alert and oriented x3. Normal speech. PSYCH: Normal affect, normal mood. SKIN: Warm, dry, normal turgor. No rashes or lesions noted. Course - Re-evaluation Re-evalutation: 07/11/18 11:11 Wheezes are much improved and the patient is comfortable at this time after the first DuoNeb and magnesium. She still has diffuse wheezes and rhonchi when I have her cough. She did get a sputum and it will be sent to the lab. 07/11/18 12:09 At this time the patient has prolonged release of air noted by the wheezing at the end of her cough. This is a new since her last breathing treatment indicating that she is starting to open up her airways much better. She states that her breathing does feel much better and that she was ready to go home. - Vital Signs Vital signs: Temp Pulse Resp BP Pulse Ox 98.0 F 60 15 134/67 H 94 07/11/18 09:11 07/11/18 09:11 07/11/18 10:58 07/11/18 10:01 07/11/18 10:58 - Laboratory Result Diagrams: 07/11/18 09:38 07/11/18 09:38 Laboratory results interpreted by me: 07/11/18 09:38 Chloride 97 L Carbon Dioxide 34 H Glucose 127 H - Diagnostic Test Radiology reviewed: Image reviewed, Reports reviewed - Chest x-ray does not show any acute process - EKG Interpretation by Me EKG shows normal: Sinus rhythm, [place], Intervals, QRS Complexes. abnormal: ST-T Waves - Borderline anterolateral T abnormalities Rate: Normal - 57 Rhythm: NSR When compared to previous EKG there are: No significant change Discharge - Discharge Clinical Impression: COPD with acute exacerbation Condition: Stable Disposition: HOME, SELF-CARE Additional Instructions: Bronchitis with Bronchospasm (Wheezing) You have bronchitis with bronchospasm (wheezing). Sometimes people develop wheezing with a chest cold. This occurs either because of an underlying tendency toward asthma or because the virus itself irritates the bronchial tubes . This irritation causes cough, shortness of breath, and wheezing. Emergency treatment of bronchospasm may include adrenaline shots or bronchodilator aerosol. You may feel lightheaded and have a rapid pulse for an hour or two. Rest and get plenty of fluids. At home, we'll treat you with a bronchodilator inhaler. Corticosteroids may be required for some patients. Until you recover, avoid chemical fumes, dusts, pollens, and exercising in very cold or dry air. If you smoke, stop now! Most cases of bronchitis get better without antibiotics. We prescribe antibiotics when we believe bacteria are damaging your airways, or if there's high risk the bronchitis will worsen into pneumonia. Increase your fluid intake. A cool mist humidifier may make your lungs more comfortable. An expectorant (cough medicine that loosens phlegm) can help. Repeated episodes of bronchitis and bronchospasm may result in lung damage -- for example, chronic bronchitis, recurrent pneumonias, or emphysema. If you develop a fever, increased wheezing, chest pain, or severe shortness of breath, you should contact the doctor immediately. Start the prednisone tomorrow morning. Start the doxycycline this evening. Continue your regular medications. Use your nebulizer as needed for wheezing and shortness of breath. Drink plenty of fluids and get plenty of rest. Try to reduce smoking as much as possible. Take Robitussin-DM to help with your cough and to loosen up mucus. Follow-up with your primary provider this week for recheck. RETURN TO THE EMERGENCY ROOM IF ANY NEW OR WORSENING SYMPTOMS. Prescriptions: Albuterol Sulfate [Ventolin 0.083% Neb 2.5 mg/3 mL Ampul] 1 vial NEB Q4 PRN #50 vial PRN Reason: Doxycycline Hyclate 100 mg PO BID #20 tablet. Prednisone [Deltasone 10 mg Tablet] 10 mg PO ASDIR PRN #21 tablet PRN Reason: Referrals: HANK PUENTES FNP [Primary Care Provider] - Follow up in 3-5 days Scribe Attestation: 07/11/18 12:11 I personally performed the services described in the documentation, reviewed and edited the documentation which was dictated to the scribe in my presence, and it accurately records my words and actions. I personally performed the services described in the documentation, reviewed and edited the documentation which was dictated to the scribe in my presence, and it accurately records my words and actions.
--- NOTE | 2018-07-11 17:14 | EKG REPORT ---
SEVERITY:- BORDERLINE ECG - SINUS RHYTHM BORDERLINE T ABNORMALITIES, ANT-LAT LEADS : Confirmed by: Frank Umanzor MD 11-Jul-2018 17:14:00
== END 2018-07-11 12:35 | disposition home or self-care (01) ==
LOC: ER 09:08
DX: J44.1 Chronic obstructive pulmonary disease with (acute) exacerbation (principal); R05 Cough; R06.02 Shortness of breath; I10 Essential (primary) hypertension; F17.200 Nicotine dependence, unspecified, uncomplicated; Z79.51 Long term (current) use of inhaled steroids; Z86.73 Personal history of transient ischemic attack (TIA), and cerebral infarction without residual deficits
CPT/HCPCS: 93005; 94640 ×2; 99285; 96375; 96365; 36415; 87070; 87205; 82553; 82550; 83735; 85025; 87077; 80053; 84484; 87186; 71046; 93010; A9270 ×4; J2930; J3475; J7512; J7620

== ENCOUNTER 2018-12-02 12:39 | Emergency (ER) | payer MEDICARE ==
[2018-12-02] MEDS ORDERED: ASPIRIN 81 MG TABLET, CHEWABLE PO ONE (12:56)
[2018-12-02] MEDS ORDERED: IPRATROPIUM/ALBUTEROL 0.5-2.5 MG/3 ML AMPUL NEB ONE ×2 (12:57→16:11)
[2018-12-02] MEDS ORDERED: METHYLPREDNISOLONE INJ 125 MG/2 ML SDV IV ONE (12:57)
--- NOTE | 2018-12-02 12:59 | ER Document Report ---
ED Medical Screen (RME) - General Chief Complaint: Chest Pain Stated Complaint: CHEST PAIN Time Seen by Provider: 12/02/18 12:55 Primary Care Provider: HANK PUENTES FNP [Primary Care Provider] - Follow up as needed Information source: Patient Notes: Patient presents complaining of chest tightness since 1130 today. Patient reports difficulty breathing with nausea. 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 Patient's family member at bedside reports that patient is been having heartburn symptoms off and on over the past week. hx: Hypertension, COPD I have greeted and performed a rapid initial assessment of this patient. A comprehensive ED assessment and evaluation of the patient, analysis of test results and completion of the medical decision making process will be conducted by additional ED providers. TRAVEL OUTSIDE OF THE [place] IN LAST 30 DAYS: No - Related Data Allergies/Adverse Reactions: No Known Allergies Allergy (Verified 12/02/18 12:41) Past Medical History - Past Medical History Cardiac Medical History: Reports: Hx Hypercholesterolemia, Hx Hypertension Denies: Hx Coronary Artery Disease, Hx Heart Attack Pulmonary Medical History: Reports: Hx COPD Neurological Medical History: Denies: Hx Cerebrovascular Accident Endocrine Medical History: Denies: Hx Diabetes Mellitus Type 1, Hx Diabetes Mellitus Type 2, Hx Hypothyroidism Renal/ Medical History: Denies: Hx Peritoneal Dialysis Past Surgical History: Reports: Hx Tubal Ligation - Immunizations Hx Diphtheria, Pertussis, Tetanus Vaccination: No Physical Exam - Vital signs Vitals: Temp Pulse Resp BP Pulse Ox 98.1 F 65 20 157/82 H 96 12/02/18 12:52 12/02/18 12:52 12/02/18 12:52 12/02/18 12:52 12/02/18 12:52 - Respiratory Respiratory status: No respiratory distress Breath sounds: Nonproductive cough, Wheezing - Faint Course - Vital Signs Vital signs: Temp Pulse Resp BP Pulse Ox 98.1 F 65 20 157/82 H 96 12/02/18 12:52 12/02/18 12:52 12/02/18 12:52 12/02/18 12:52 12/02/18 12:52 Doctor's Discharge - Discharge Referrals: HANK PUENTES FNP [Primary Care Provider] - Follow up as needed
--- NOTE | 2018-12-02 13:32 | RADIOLOGY REPORT (SQ) ---
EXAM DESCRIPTION: CHEST 2 VIEWS COMPLETED DATE/TIME: 12/02/2018 1:13 pm REASON FOR STUDY: diff breathing, cp COMPARISON: 07/11/2018. EXAM PARAMETERS: NUMBER OF VIEWS: two views TECHNIQUE: Digital Frontal and Lateral radiographic views of the chest acquired. RADIATION DOSE: NA LIMITATIONS: none FINDINGS: LUNGS AND PLEURA: No opacities, masses or pneumothorax. No pleural effusion. MEDIASTINUM AND HILAR STRUCTURES: No masses or contour abnormalities. HEART AND VASCULAR STRUCTURES: Heart normal size. No evidence for failure. BONES: No acute findings. Degenerative changes in the spine. HARDWARE: None in the chest. OTHER: No other significant finding. IMPRESSION: NO ACUTE RADIOGRAPHIC FINDING IN THE CHEST. TECHNICAL DOCUMENTATION: JOB ID: [id number] [employer]- All Rights Reserved Reading location - IP/workstation name: [email or web address]
[2018-12-02 13:41] LABS: ABSOLUTE BASOPHILS # (AUTO) 0.1 10^3/uL (0.0-0.2); ABSOLUTE EOSINOPHILS # (AUTO) 0.3 10^3/uL (0.0-0.6); ABSOLUTE LYMPHOCYTES (AUTO) 1.6 10^3/uL (0.5-4.7); ABSOLUTE MONOCYTES (AUTO) 0.3 10^3/uL (0.1-1.4); ABSOLUTE NEUT (AUTO) 4.3 10^3/uL (1.7-8.2); EOSINOPHILS % (AUTO) 5.2 % (0-6); HEMATOCRIT 40.5 % (36.0-47.0); HEMOGLOBIN 13.7 g/dL (12.0-15.5); LYMPHOCYTES % (AUTO) 23.8 % (13-45); MEAN CORPUSCULAR HEMOGLOBIN 29.1 pg (27.0-33.4); MEAN CORPUSCULAR HGB CONC 33.7 g/dL (32.0-36.0); MEAN CORPUSCULAR VOLUME 86 fl (80-97); MONOCYTES % (AUTO) 4.5 % (3-13); PLATELET COUNT 198 10^3/uL (150-450); RED CELL DISTRIBUTION WIDTH 13.7 % (11.5-14.0); SEGMENTED NEUTROPHILS % (AUTO) 65.5 % (42-78); TOTAL CELLS COUNTED % (AUTO) 100 %; WHITE BLOOD COUNT 6.6 10^3/uL (4.0-10.5)
[2018-12-02 13:48] LABS: INTERNATIONAL RATION (INR) 1.07
[2018-12-02 14:00] LABS: ALANINE AMINOTRANSFERASE 17 U/L (9-52); ALBUMIN 4.3 g/dL (3.5-5.0); ALKALINE PHOSPHATASE 87 U/L (38-126); ANION GAP 8 (5-19); ASPARTATE AMINO TRANSFERASE 17 U/L (14-36); BILIRUBIN,DIRECT 0.2 mg/dL (0.0-0.4); BILIRUBIN,TOTAL 0.7 mg/dL (0.2-1.3); BLOOD UREA NITROGEN 25 mg/dL (7-20); CALCIUM 9.3 mg/dL (8.4-10.2); CARBON DIOXIDE 32 mmol/L (22-30); CHLORIDE 100 mmol/L (98-107); CREATINE KINASE 39 U/L (30-135); GLUCOSE 117 mg/dL (75-110); POTASSIUM 4.2 mmol/L (3.6-5.0); SODIUM 139.7 mmol/L (137-145); TOTAL PROTEIN 6.9 g/dL (6.3-8.2)
[2018-12-02 14:12] LABS: TROPONIN I < 0.012 ng/mL
[2018-12-02] MEDS ORDERED: DOXYCYCLINE HYCLATE 100 MG TABLET PO ONE (16:11)
[2018-12-02 16:32] VITALS: BP 146/69
--- NOTE | 2018-12-02 17:27 | ER Document Report ---
ED General - General Chief Complaint: Chest Pain Stated Complaint: CHEST PAIN Time Seen by Provider: 12/02/18 12:55 Primary Care Provider: HANK PUENTES FNP [Primary Care Provider] - Follow up as needed Mode of Arrival: Ambulatory Information source: Patient Notes: 68-year-old female with COPD, hypertension, hyperlipidemia presents with complaint of shortness of breath and chest tightness that started this morning while at rest. Patient states that she has chronic shortness of breath but it has worsened over the last 2 days. She is supposed to be on continuous oxygen but states that she only periodically uses it. She did not take it with her on the drive to the emergency department and was found initially hypoxic. Patient has had a chronic nonproductive cough. Denies any leg swelling, nausea, vomiting, headache, sore throat, dysuria, hematuria. Patient does continue to use tobacco. TRAVEL OUTSIDE OF THE [place] IN LAST 30 DAYS: No - HPI Onset: This morning Onset/Duration: Gradual, Persistent Quality of pain: No pain Severity: None Pain Level: Denies Associated symptoms: Nonproductive cough, Shortness of breath. denies: Chest pain, Fever, Hurts to breath, Leg swelling, Nausea, Vomiting Exacerbated by: Movement, Walking Relieved by: Denies Similar symptoms previously: Yes Recently seen / treated by doctor: No - Related Data Allergies/Adverse Reactions: No Known Allergies Allergy (Verified 12/02/18 12:41) Past Medical History - General Information source: Patient - Social History Smoking Status: Current Every Day Smoker Frequency of alcohol use: None Drug Abuse: None Family History: Reviewed & Not Pertinent Patient has suicidal ideation: No Patient has homicidal ideation: No - Past Medical History Cardiac Medical History: Reports: Hx Hypercholesterolemia, Hx Hypertension Denies: Hx Coronary Artery Disease, Hx Heart Attack Pulmonary Medical History: Reports: Hx COPD Neurological Medical History: Denies: Hx Cerebrovascular Accident Endocrine Medical History: Denies: Hx Diabetes Mellitus Type 1, Hx Diabetes Mellitus Type 2, Hx Hypothyroidism Renal/ Medical History: Denies: Hx Peritoneal Dialysis Past Surgical History: Reports: Hx Tubal Ligation - Immunizations Hx Diphtheria, Pertussis, Tetanus Vaccination: No Review of Systems - Review of Systems Notes: REVIEW OF SYSTEMS: CONSTITUTIONAL : Denies fever, chills, or sweats. Denies recent illness. Denies weight loss, recent hospitalizations. EENT: Denies visual changes, eye pain. Denies sore throat, oral lesions, difficulty swallowing. CARDIOVASCULAR: Denies chest pain. Denies palpitations. Denies lower extremity edema. RESPIRATORY: + cough. + shortness of breath, wheezing. GASTROINTESTINAL: Denies abdominal pain or distention. Denies nausea, vomiting, or diarrhea. Denies blood in vomitus, stools, or per rectum. Denies black, tarry stools. Denies constipation. GENITOURINARY: Denies difficulty urinating, painful urination, frequency, blood in urine, or vaginal discharge. MUSCULOSKELETAL: Denies back or neck pain or stiffness. Denies joint pain or swelling. SKIN: Denies rash, lesions or sores. HEMATOLOGIC : Denies easy bruising or bleeding. LYMPHATIC: Denies swollen glands. NEUROLOGICAL: Denies confusion or altered mental status. Denies loss of consciousness. Denies dizziness or lightheadedness. Denies headache. Denies weakness or paralysis. Denies problems difficulty with ambulation, slurred speech. Denies sensory loss, numbness, or tingling. Denies seizures. PSYCHIATRIC: Denies anxiety or stress. Denies depression, suicidal ideation, or homicidal ideation. Denies visual or auditory hallucinations. Physical Exam - Vital signs Vitals: Temp Pulse Resp BP Pulse Ox 98.1 F 65 20 157/82 H 96 12/02/18 12:52 12/02/18 12:52 12/02/18 12:52 12/02/18 12:52 12/02/18 12:52 - Notes Notes: PHYSICAL EXAMINATION: GENERAL: Well-appearing, well-nourished and in no acute distress. HEAD: Atraumatic, normocephalic. EYES: Pupils equal round and reactive to light, extraocular movements intact, conjunctiva are normal. ENT: Nares patent, oropharynx clear without exudates. Moist mucous membranes. NECK: Normal range of motion, supple without lymphadenopathy LUNGS: Mild expiratory wheezing in the upper lung gusman. No accessory muscle use, increased work of breathing, hypoxia when on her 2 L of oxygen. HEART: Regular rate and rhythm without murmurs ABDOMEN: Soft, nontender, nondistended abdomen. No guarding, no rebound. No masses appreciated. Female : deferred Musculoskeletal: Normal range of motion, no pitting or edema. No cyanosis. NEUROLOGICAL: Cranial nerves grossly intact. Normal speech, normal gait. Normal sensory, motor exams PSYCH: Normal mood, normal affect. SKIN: Warm, Dry, normal turgor, no rashes or lesions noted. Course - Re-evaluation Re-evalutation: 12/02/18 22:11 Laboratory 12/02/18 12/02/18 12/02/18 13:25 13:25 13:25 WBC 6.6 RBC 4.70 Hgb 13.7 Hct 40.5 MCV 86 MCH 29.1 MCHC 33.7 RDW 13.7 Plt Count 198 Seg Neutrophils % 65.5 Lymphocytes % 23.8 Monocytes % 4.5 Eosinophils % 5.2 Basophils % 1.0 Absolute Neutrophils 4.3 Absolute Lymphocytes 1.6 Absolute Monocytes 0.3 Absolute Eosinophils 0.3 Absolute Basophils 0.1 PT 14.0 INR 1.07 D-Dimer Sodium 139.7 Potassium 4.2 Chloride 100 Carbon Dioxide 32 H Anion Gap 8 BUN 25 H Creatinine 0.73 Est GFR ( Amer) > 60 Est GFR (Non-Af Amer) > 60 Glucose 117 H Calcium 9.3 Total Bilirubin 0.7 Direct Bilirubin 0.2 Neonat Total Bilirubin Not Reportable Neonat Direct Bilirubin Not Reportable Neonat Indirect Bili Not Reportable AST 17 ALT 17 Alkaline Phosphatase 87 Creatine Kinase 39 CK-MB (CK-2) Troponin I Total Protein 6.9 Albumin 4.3 12/02/18 12/02/18 12/02/18 13:25 13:25 16:30 WBC RBC Hgb Hct MCV MCH MCHC RDW Plt Count Seg Neutrophils % Lymphocytes % Monocytes % Eosinophils % Basophils % Absolute Neutrophils Absolute Lymphocytes Absolute Monocytes Absolute Eosinophils Absolute Basophils PT INR D-Dimer 0.48 Sodium Potassium Chloride Carbon Dioxide Anion Gap BUN Creatinine Est GFR ( Amer) Est GFR (Non-Af Amer) Glucose Calcium Total Bilirubin Direct Bilirubin Neonat Total Bilirubin Neonat Direct Bilirubin Neonat Indirect Bili AST ALT Alkaline Phosphatase Creatine Kinase CK-MB (CK-2) 0.80 Troponin I < 0.012 < 0.012 Total Protein Albumin Chest X-Ray 12/02/18 12:56 IMPRESSION: NO ACUTE RADIOGRAPHIC FINDING IN THE CHEST. Temp Pulse Resp BP Pulse Ox 98.1 F 65 18 146/69 H 94 12/02/18 12:52 12/02/18 12:52 12/02/18 16:26 12/02/18 16:26 12/02/18 16:26 12/02/18 22:12 68-year-old female with COPD, hypertension, hyperlipidemia presents with complaint of shortness of breath and chest tightness that started this morning while at rest. Patient states that she has chronic shortness of breath but it has worsened over the last 2 days. She is supposed to be on continuous oxygen but states that she only periodically uses it. She did not take it with her on the drive to the emergency department and was found initially hypoxic. Patient has had a chronic nonproductive cough. Vital signs reviewed and like noted ear lier patient was hypoxic but not wearing her oxygen. Patient did receive breathing treatments, Solu-Medrol and does report improvement of her dyspnea. CBC, CMP, cardiac enzymes, d-dimer are all within normal limits. Patient presents with a mild exacerbation of their baseline COPD. Mild wheezing at time of presentation but vitals do not show significant hypoxemia or tachypnea. No retractions. Patient did clinically improve after receiving nebulizers here in the emergency department. Chest x-ray without evidence of an acute pneumonia. Laboratories do not show acute kidney injury or significant leukocytosis. Patient able to ambulate without any respiratory distress. Based on patient's overall reassuring assessment, I believe they are stable for outpatient management with steroids and oral antibiotics. Patient has nebulizers at home. I do not suspect an acute alternative pathology at this time based on history and exam including acute pulmonary embolus, ACS, pneumothorax, or aortic dissection. At this time will discharge with return precautions and follow-up recommendations. Verbal discharge instructions given a the bedside and opportunity for questions given. Medication warnings reviewed. Patient is in agreement with this plan and has verbalized understanding of return precautions and the need for primary care follow-up in the next 24-72 hours. MDM - Vital Signs Vital signs: Temp Pulse Resp BP Pulse Ox 98.1 F 65 18 146/69 H 94 12/02/18 12:52 12/02/18 12:52 12/02/18 16:26 12/02/18 16:26 12/02/18 16:26 - Laboratory Result Diagrams: 12/02/18 13:25 12/02/18 13:25 Laboratory results interpreted by me: 12/02/18 13:25 Carbon Dioxide 32 H BUN 25 H Glucose 117 H - Diagnostic Test Radiology reviewed: Image reviewed, Reports reviewed - EKG Interpretation by Me EKG shows normal: Sinus rhythm Rate: Normal Rhythm: NSR When compared to previous EKG there are: No significant change Discharge - Discharge Clinical Impression: COPD exacerbation, Chest tightness, Tobacco dependence Hypertension Qualifiers: Hypertension type: unspecified Qualified Code(s): I10 - Essential (primary) hypertension Condition: Good Disposition: HOME, SELF-CARE Additional Instructions: You were seen today for chest pain. The exact cause of your pain is unclear. However, based on your cardiac enzyme testing, chest x-ray, and EKG it does not appear that it is from an immediately life-threatening cause at this time. Although your testing here is normal is critical that you follow-up with your primary care physician for continued evaluation of this chest pain and possible stress testing. I recommended you see your physician within the next 24-48 hours to be evaluated for consideration of a stress test. Please return to emergency department immediately if you have worsening of your chest pain, shortness of breath, vomiting, become unable to exert yourself due to pain or difficulty breathing, you pass out, or have any pain that radiates into your a stevenson, jaw, or back. Please also return if you have any additional symptoms that are concerning to you. Follow up with your [id number] hours for further care or return to the ED IMMEDIATELY if symptoms worsen or you have any concerns. If you cannot afford to follow up with your primary care physician a list of low cost clinics have been provided at the end of your discharge papers as well. Most prescribed medications have multiple side effects. The safest thing to do is when filling your prescription speak to your pharmacist regarding possible interactions with your normal home medications and over the counter medications such as Ibuprofen, Tylenol, Benadryl. If you experience any symptoms that cause you discomfort or concern you should discontinue the medication immediately and return to the emergency room or call your primary care physician. You were seen for a COPD exacerbation. Your symptoms improved with treatment here in the emergency department. However, it is very important that you return to the emergency department immediately if you began to have worsening difficulty breathing that does not respond to your normal home nebulizers. You are also being sent home on a five-day course of steroids that you should start taking tomorrow. Please also take the antibiotics as prescribed. Please also follow closely with your primary care physician. You should eturn to emergency department if you develop fever greater than 101, persistent cough, persistent vomiting, pass out, or any other symptoms that are concerning to you. Prescriptions: Doxycycline Hyclate 100 mg PO BID #14 capsule Prednisone [Deltasone 20 mg Tablet] 3 tab PO DAILY 5 Days #15 tablet Forms: Elevated Blood Pressure Referrals: HANK PUENTES FNP [Primary Care Provider] - Follow up as needed
--- NOTE | 2018-12-02 22:03 | EKG REPORT ---
SEVERITY:- NORMAL ECG - SINUS RHYTHM : Confirmed by: Perry Mendoza 02-Dec-2018 22:02:52
== END 2018-12-02 17:50 | disposition home or self-care (01) ==
LOC: ER 12:39
DX: J44.1 Chronic obstructive pulmonary disease with (acute) exacerbation (principal); R09.02 Hypoxemia; T41.5X6A Underdosing of therapeutic gases, initial encounter; Z91.128 Patient's intentional underdosing of medication regimen for other reason; Z91.14 Patient's other noncompliance with medication regimen; R07.89 Other chest pain; R06.02 Shortness of breath; I10 Essential (primary) hypertension; R05 Cough; F17.200 Nicotine dependence, unspecified, uncomplicated
CPT/HCPCS: 93005; 94640 ×2; 99285; 96374; 36415; 82553; 82550; 85025; 85610; 80053; 84484; 85379; 71046; 93010; A9270 ×3; J2930; J7620

== ENCOUNTER 2019-01-19 08:33 | Observation (INO) | payer MEDICARE ==
[2019-01-19] MEDS ORDERED: IPRATROPIUM/ALBUTEROL 0.5-2.5 MG/3 ML AMPUL NEB ONE ×2 (08:59→13:33)
[2019-01-19 09:17] LABS: ABSOLUTE BASOPHILS # (AUTO) 0.1 10^3/uL (0.0-0.2); ABSOLUTE EOSINOPHILS # (AUTO) 0.4 10^3/uL (0.0-0.6); ABSOLUTE MONOCYTES (AUTO) 0.2 10^3/uL (0.1-1.4); ABSOLUTE NEUT (AUTO) 5.1 10^3/uL (1.7-8.2); BASOPHILS % (AUTO) 0.9 % (0-2); HEMATOCRIT 40.1 % (36.0-47.0); HEMOGLOBIN 13.4 g/dL (12.0-15.5); LYMPHOCYTES % (AUTO) 14.7 % (13-45); MEAN CORPUSCULAR HEMOGLOBIN 29.5 pg (27.0-33.4); MEAN CORPUSCULAR HGB CONC 33.5 g/dL (32.0-36.0); MEAN CORPUSCULAR VOLUME 88 fl (80-97); MONOCYTES % (AUTO) 3.3 % (3-13); PLATELET COUNT 182 10^3/uL (150-450); RED BLOOD COUNT 4.56 10^6/uL (3.72-5.28); RED CELL DISTRIBUTION WIDTH 13.5 % (11.5-14.0); SEGMENTED NEUTROPHILS % (AUTO) 75.1 % (42-78); TOTAL CELLS COUNTED % (AUTO) 100 %; WHITE BLOOD COUNT 6.8 10^3/uL (4.0-10.5)
--- NOTE | 2019-01-19 09:28 | RADIOLOGY REPORT (SQ) ---
EXAM DESCRIPTION: CHEST SINGLE VIEW COMPLETED DATE/TIME: 01/19/2019 9:12 am REASON FOR STUDY: SOB COMPARISON: 12/02/2018 EXAM PARAMETERS: NUMBER OF VIEWS: One view. TECHNIQUE: Single frontal radiographic view of the chest acquired. RADIATION DOSE: NA LIMITATIONS: None. FINDINGS: LUNGS AND PLEURA: No opacities, masses or pneumothorax. No pleural effusion. MEDIASTINUM AND HILAR STRUCTURES: No masses. Contour normal. HEART AND VASCULAR STRUCTURES: Normal heart size. Aortic atherosclerosis. BONES: No acute findings. HARDWARE: None in the chest. OTHER: No other significant finding. IMPRESSION: No evidence of acute cardiopulmonary process. TECHNICAL DOCUMENTATION: JOB ID: [id number] [employer]- All Rights Reserved Reading location - IP/workstation name: [email or web address]
[2019-01-19 09:32] LABS: ALBUMIN 4.3 g/dL (3.5-5.0); ALKALINE PHOSPHATASE 89 U/L (38-126); ANION GAP 6 (5-19); ASPARTATE AMINO TRANSFERASE 18 U/L (14-36); BILIRUBIN,DIRECT 0.2 mg/dL (0.0-0.4); BILIRUBIN,TOTAL 0.5 mg/dL (0.2-1.3); BLOOD UREA NITROGEN 15 mg/dL (7-20); CALCIUM 9.1 mg/dL (8.4-10.2); CARBON DIOXIDE 33 mmol/L (22-30); CHLORIDE 101 mmol/L (98-107); GLUCOSE 125 mg/dL (75-110); POTASSIUM 4.4 mmol/L (3.6-5.0)
[2019-01-19 09:42] LABS: NT PRO BNP 242 pg/mL (5-900)
--- NOTE | 2019-01-19 09:44 | EKG REPORT ---
SEVERITY:- BORDERLINE ECG - SINUS RHYTHM BORDERLINE T ABNORMALITIES, ANT-LAT LEADS : Confirmed by: Perry Mendoza 19-Jan-2019 09:43:52
[2019-01-19 09:46] LABS: TROPONIN I < 0.012 ng/mL
--- NOTE | 2019-01-19 12:42 | ER Document Report ---
ED Respiratory Problem - General Chief Complaint: Shortness Of Breath Stated Complaint: SHORTNESS OF BREATH Time Seen by Provider: 01/19/19 08:58 Primary Care Provider: HANK PUENTES FNP [Primary Care Provider] - Follow up as needed Notes: 68 yo female with COPD hx and home O2 dependence c/o of SOB x3 days. EMS reports upon arrive to pt home that pt was waering home 02 at 2L with 96% O2Sat. Ems states that lung sounds were not heard. Pt had taken 1 neb tx at home before arrival with no results. EMS gave 1 albuterol tx and then wheezes were heard. EMS gave a total of 3 albuterol txs, 1 atrovent tx, and 125mg of solumedrol IM. Upon arrival pt blood drawn, 20g LAC started, pt a&ox4, pt denies fever. TRAVEL OUTSIDE OF THE [place] IN LAST 30 DAYS: No - Related Data Allergies/Adverse Reactions: No Known Allergies Allergy (Verified 12/02/18 12:41) Past Medical History - Social History Smoking Status: Never Smoker Chew tobacco use (# tins/day): No Frequency of alcohol use: None Drug Abuse: None Family History: Reviewed & Not Pertinent Patient has suicidal ideation: No Patient has homicidal ideation: No - Past Medical History Cardiac Medical History: Reports: Hx Hypercholesterolemia, Hx Hypertension Denies: Hx Coronary Artery Disease, Hx Heart Attack Pulmonary Medical History: Reports: Hx COPD Neurological Medical History: Denies: Hx Cerebrovascular Accident Endocrine Medical History: Denies: Hx Diabetes Mellitus Type 1, Hx Diabetes Mellitus Type 2, Hx Hypothyroidism Renal/ Medical History: Denies: Hx Peritoneal Dialysis Past Surgical History: Reports: Hx Tubal Ligation - Immunizations Hx Diphtheria, Pertussis, Tetanus Vaccination: No Review of Systems - Review of Systems Constitutional: denies: Chills, Fever EENT: denies: Throat pain Cardiovascular: denies: Chest pain Respiratory: Cough, Short of breath, Wheezing. denies: Hemoptysis Gastrointestinal: denies: Abdominal pain, Nausea, Vomiting -: Yes All other systems reviewed and negative Physical Exam - Vital signs Vitals: Resp Pulse Ox 18 95 01/19/19 09:06 01/19/19 09:06 - Notes Notes: GENERAL_APPEARANCE: well_nourished, alert, cooperative VITALS: reviewed, see vital signs table. HEAD: no_swelling\tenderness on the head. EYES: PERRL, EOMI, conjunctiva_clear. NOSE: no_nasal_discharge. MOUTH: (-)decreased moisture. THROAT: no_tonsilar_inflammation, no_airway_obstruction. no_lymphadenopathy NECK: supple, no_neck_tenderness, (-)thyromegaly. BACK: no_back_tenderness. CHEST_WALL: no_chest_tenderness. LUNGS: Scattered_wheezing, no_rales, no_rhonchi, (-)accessory muscle use, fair air exchange bilateral. HEART: normal_rate, normal_rhythm, normal_S1, normal_S2, (-)S3, (-)S4, no_murmur, no_rub. ABDOMEN: normal_BS, soft, no_abd_tenderness, (-)guarding, (-)rebound, no_organomegaly, no_abd_masses. EXTREMITIES: good pulses in all_extremities, no_swelling\tenderness in the extremities, 1 plus_edema. Negative calf tenderness bilateral SKIN: warm, dry, good_color, no_rash. MENTAL_STATUS: speech_clear, oriented_X_3, normal_affect, responds_appropriately to questions. Course - Re-evaluation Re-evalutation: 01/19/19 12:41 68-year-old female presents with a COPD exacerbation. She is usually on 2 L of home O2. She is been using her aerosol treatments fairly frequently lately. States she is been coughing but feels as if she cannot get anything up she denies fever chills. The patient was given aerosol treatments here steroids. Chest x-ray shows no signs of pneumonia. Blood work is fairly reassuring. There is no leukocytosis no fever. BNP is low troponin is negative EKG shows no ischemic changes. Patient has improved with aerosols here - Vital Signs Vital signs: Temp Pulse Resp BP Pulse Ox 20 146/80 H 96 01/19/19 12:01 01/19/19 12:00 01/19/19 12:01 - Laboratory Result Diagrams: 01/19/19 09:00 01/19/19 09:00 Laboratory results interpreted by me: 01/19/19 09:00 Carbon Dioxide 33 H Glucose 125 H - EKG Interpretation by Mn EKG shows normal: Sinus rhythm Rate: Normal Rhythm: NSR Discharge - Discharge Clinical Impression: COPD (chronic obstructive pulmonary disease) Qualifiers: COPD type: unspecified COPD Qualified Code(s): J44.9 - Chronic obstructive pu lmonary disease, unspecified Condition: Good Disposition: ADMITTED OBSERVATION Admitting Provider: Apryl (Hospitalist) Unit Admitted: Telemetry Referrals: HANK PUENTES FNP [Primary Care Provider] - Follow up as needed
[2019-01-19] MEDS ORDERED: ACETAMINOPHEN 325 MG TABLET PO ONE (13:30)
[2019-01-19] MEDS ORDERED: HYDRALAZINE HCL INJ/PF 20 MG/1 ML SDV IV PRN (13:40)
--- NOTE | 2019-01-19 13:44 | PDOC H&P ---
History of Present Illness Admission Date/PCP: 01/19/19 13:08 PADMINI BOWLING Patient complains of: SOB, wheezing History of Present Illness: ROVERTO JOEL is a 68 year old female with a past medical history of chronic respiratory failure, COPD on 2 L of home O2, history of TIA and hypertension who presented with increasing shortness of breath and wheezing. Patient says that she has shortness of breath at her baseline but this has been worsening the past 2 to 3 days. She also noticed she was wheezing more than the usual. She denies any productive cough. Denies fever or chills. Denies recent sick contacts. In the ER, she was noted to be initially very tachypneic and had bilateral wheezing. She received multiple breathing treatments and IV steroids. She says that the treatments did help but she feels like she is getting a little short of breath again. Past Medical History Cardiac Medical History: Reports: Hyperlipidema, Hypertension Denies: Coronary Artery Disease, Myocardial Infarction Pulmonary Medical History: Reports: Chronic Obstructive Pulmonary Disease (COPD) Endocrine Medical History: Denies: Diabetes Mellitus Type 1, Diabetes Mellitus Type 2, Hypothyroidism Past Surgical History Past Surgical History: Reports: Tubal Ligation Social History Smoking Status: Never Smoker Frequency of Alcohol Use: None Hx Recreational Drug Use: No Hx Prescription Drug Abuse: No Family History Family History: Reviewed & Not Pertinent Parental Family History Reviewed: Yes Children Family History Reviewed: No Sibling(s) Family History Reviewed.: No Medication/Allergy Allergies/Adverse Reactions: No Known Allergies Allergy (Verified 12/02/18 12:41) Review of Systems All systems: reviewed and no additional remarkable complaints except as stated - As mentioned in HPI Physical Exam Vital Signs: Temp Pulse Resp BP Pulse Ox 20 146/80 H 96 01/19/19 12:01 01/19/19 12:00 01/19/19 12:01 Intake & Output 01/18/19 01/19/19 01/20/19 06:59 06:59 06:59 Output Total 1000 Balance -1000 General appearance: PRESENT: mild distress, well-developed, well-nourished Head exam: PRESENT: atraumatic, normocephalic Eye exam: PRESENT: conjunctiva pink, EOMI, PERRLA. ABSENT: scleral icterus Ear exam: PRESENT: normal external ear exam Mouth exam: PRESENT: moist, tongue midline Neck exam: ABSENT: carotid bruit, JVD, lymphadenopathy, thyromegaly Respiratory exam: PRESENT: rhonchi, wheezes. ABSENT: rales Cardiovascular exam: PRESENT: RRR. ABSENT: diastolic murmur, rubs, systolic murmur Pulses: PRESENT: normal dorsalis pedis pul GI/Abdominal exam: PRESENT: normal bowel sounds, soft. ABSENT: distended, guarding, mass, organolmegaly, rebound, tenderness Rectal exam: PRESENT: deferred Extremities exam: PRESENT: full ROM. ABSENT: calf tenderness, clubbing, pedal edema Neurological exam: PRESENT: alert, awake, oriented to person, oriented to place, oriented to time, oriented to situation, CN II-XII grossly intact. ABSENT: motor sensory deficit Results Laboratory Results: 01/19/19 09:00 01/19/19 09:00 01/19/19 01/19/19 09:00 09:00 WBC 6.8 RBC 4.56 Hgb 13.4 Hct 40.1 MCV 88 MCH 29.5 MCHC 33.5 RDW 13.5 Plt Count 182 Seg Neutrophils % 75.1 Lymphocytes % 14.7 Monocytes % 3.3 Eosinophils % 6.0 Basophils % 0.9 Absolute Neutrophils 5.1 Absolute Lymphocytes 1.0 Absolute Monocytes 0.2 Absolute Eosinophils 0.4 Absolute Basophils 0.1 Sodium 139.7 Potassium 4.4 Chloride 101 Carbon Dioxide 33 H Anion Gap 6 BUN 15 Creatinine 0.59 Est GFR ( Amer) > 60 Est GFR (Non-Af Amer) > 60 Glucose 125 H Calcium 9.1 Total Bilirubin 0.5 AST 18 Alkaline Phosphatase 89 Total Protein 7.0 Albumin 4.3 01/19/19 09:00 Troponin I < 0.012 NT-Pro-B Natriuret Pep 242 Impressions: Chest X-Ray 01/19/19 08:59 IMPRESSION: No evidence of acute cardiopulmonary process. Assessment and Plan - Diagnosis (1) Acute on chronic respiratory failure with hypoxia Is this a current diagnosis for this admission?: Yes Plan: Patient appears slightly tachypneic but improved since presentation to the ER. Currently saturating well on 4 L of nasal cannula. (2) COPD exacerbation Is this a current diagnosis for this admission?: Yes Plan: We will start patient on scheduled breathing treatments. We will continue with IV steroids. Will have patient on azithromycin. (3) Hypertension Qualifiers: Hypertension type: unspecified Qualified Code(s): I10 - Essential (primary) hypertension Is this a current diagnosis for this admission?: Yes Plan: Resume home meds once verified. - Time Time Spent with patient: 25-34 minutes
--- NOTE | 2019-01-19 13:45 | ADVANCED CARE ---
- Diagnosis (1) Acute on chronic respiratory failure with hypoxia Diagnosis Current: Yes (2) COPD exacerbation Diagnosis Current: Yes (3) Hypertension Diagnosis Current: Yes Resuscitation Status: Full Code Discussion: Discussed with patient. She says she is a full code and prefers to get chest compressions, defibrillation or mechanical ventilation if the need arises. She says that her niece, Jamee Del Valle is her surrogate medical decision maker.
[2019-01-19] MEDS ORDERED: CEFTRIAXONE 1 GM/D5W RTU 1 GM/50 ML RTUPB IV ONE (14:00)
[2019-01-19] MEDS: AZITHROMYCIN 250 MG TABLET PO SCH (14:02)
[2019-01-19] MEDS: METHYLPREDNISOLONE INJ 40 MG/1 ML SDV IV SCH ×2 (14:02→21:56)
[2019-01-19] MEDS: IPRATROPIUM/ALBUTEROL 0.5-2.5 MG/3 ML AMPUL NEB SCH ×2 (16:04→19:48)
[2019-01-19] MEDS: HEPARIN SOD (PORCINE) 5,000 UNIT/ML 1 ML VIAL SUBCUT SCH (21:56)
[2019-01-20] MEDS: IPRATROPIUM/ALBUTEROL 0.5-2.5 MG/3 ML AMPUL NEB SCH ×7 (00:39→23:54)
[2019-01-20] MEDS: METHYLPREDNISOLONE INJ 40 MG/1 ML SDV IV SCH ×3 (05:18→21:10)
[2019-01-20] MEDS: AZITHROMYCIN 250 MG TABLET PO SCH (10:11)
[2019-01-20] MEDS: HEPARIN SOD (PORCINE) 5,000 UNIT/ML 1 ML VIAL SUBCUT SCH ×2 (10:11→21:13)
--- NOTE | 2019-01-20 13:22 | PDOC PROGRESS REPORT ---
Subjective Progress Note for:: 01/20/19 Subjective:: Seen on rounds this afternoon. States she still has some shortness of breath but otherwise doing well. No acute complaints at this time. Denies chest pain, abdominal pain, nausea/vomiting or dizziness. Nursing at bedside. Reason For Visit: COPD (CHRONIC OBSTRUCTIVE PULMONARY DISEASE) Physical Exam Vital Signs: Temp Pulse Resp BP Pulse Ox 98.3 F 86 16 125/65 96 01/20/19 10:00 01/20/19 12:10 01/20/19 12:10 01/20/19 10:00 01/20/19 12:10 Intake & Output 01/19/19 01/20/19 01/21/19 06:59 06:59 06:59 Intake Total 170 Output Total 1000 Balance -830 Weight 224 lb 3.362 oz General appearance: PRESENT: no acute distress Head exam: PRESENT: atraumatic, normocephalic Eye exam: PRESENT: EOMI Mouth exam: PRESENT: moist Respiratory exam: PRESENT: accessory muscle use, decreased breath sounds - Late rally, symmetrical. ABSENT: wheezes Cardiovascular exam: PRESENT: +S1, +S2 Pulses: PRESENT: +2 pedal pulses bilateral GI/Abdominal exam: PRESENT: normal bowel sounds, soft. ABSENT: tenderness Neurological exam: PRESENT: CN II-XII grossly intact Results Laboratory Results: 01/19/19 09:00 01/19/19 09:00 01/19/19 09:00 Troponin I < 0.012 NT-Pro-B Natriuret Pep 242 Impressions: Chest X-Ray 01/19/19 08:59 IMPRESSION: No evidence of acute cardiopulmonary process. Assessment and Plan - Diagnosis (1) Acute on chronic respiratory failure with hypoxia Is this a current diagnosis for this admission?: Yes Plan: Most likely secondary to her COPD exacerbation-continue with aggressive pulmonary hygiene with nebulizers, inhalers and Solu-Medrol 40 mg IV every 8. Will taper down the slight Medrol from tomorrow to most likely twice daily. At home she is on 2 L as needed oxygen and here she is requiring at least 2 L continuous. We will try to wean her to greater than 89% room air. (2) COPD exacerbation Is this a current diagnosis for this admission?: Yes (3) Hypertension Qualifiers: Hypertension type: unspecified Qualified Code(s): I10 - Essential (primary) hypertension Is this a current diagnosis for this admission?: Yes Plan: Home medications were held and currently her blood pressure is stable-I will restart her medication slowly and will start with Norvasc 5 mg from tomorrow. Her atenolol and ARB is being held (4) Tobacco dependence Is this a current diagnosis for this admission?: Yes Plan: Counseled her on tobacco cessation but states that she still smoking few cigarettes a day. She is to smoke greater than 1-1/2 pack/day for more than 50 years. - Inpatient Certification Based on my medical assessment, after consideration of the patient's comorbidities, presenting symptoms, or acuity I expect that the services needed warrant INPATIENT care.: Yes Medical Necessity: Failure to Improve With Outpatient Therapy
[2019-01-20] MEDS ORDERED: ACETAMINOPHEN 325 MG TABLET PO PRN (17:00)
[2019-01-20] MEDS: FLUTICASONE/VILANTEROL 200-25 MCG/DOSE IH SCH (18:04)
[2019-01-20] MEDS ORDERED: (PENDING PHARMACY ID) (Fluticasone/Salmeterol 1 PUFF) IH SCH (22:00)
[2019-01-21] MEDS: IPRATROPIUM/ALBUTEROL 0.5-2.5 MG/3 ML AMPUL NEB SCH ×5 (04:01→20:45)
[2019-01-21] MEDS: METHYLPREDNISOLONE INJ 40 MG/1 ML SDV IV SCH ×2 (05:43→14:26)
[2019-01-21] MEDS: HEPARIN SOD (PORCINE) 5,000 UNIT/ML 1 ML VIAL SUBCUT SCH ×2 (09:46→21:07)
[2019-01-21] MEDS ORDERED: TIOTROPIUM BROMIDE DPI 5 CAP/KIT (18 MCG/CAP) IH SCH (10:00)
[2019-01-21] MEDS ORDERED: AMLODIPINE BESYLATE 5 MG TABLET PO SCH (10:00)
[2019-01-21] MEDS: AZITHROMYCIN 250 MG TABLET PO SCH (10:19)
--- NOTE | 2019-01-21 16:02 | PDOC PROGRESS REPORT ---
Subjective Progress Note for:: 01/21/19 Subjective:: Seen on rounds this afternoon. She tells me that she still having some shortness of breath with exertion. States that she does not feel this way at home. Otherwise she denies chest pain, abdominal pain, nausea/vomiting or dizziness. Reason For Visit: COPD (CHRONIC OBSTRUCTIVE PULMONARY DISEASE) Physical Exam Vital Signs: Temp Pulse Resp BP Pulse Ox 97.4 F 86 16 144/72 H 96 01/21/19 11:49 01/21/19 12:04 01/21/19 12:04 01/21/19 11:49 01/21/19 12:04 Intake & Output 01/20/19 01/21/19 01/22/19 06:59 06:59 06:59 Intake Total 170 1661 237 Output Total 1000 Balance -830 1661 237 Weight 224 lb 3.362 oz 225 lb 12.054 oz General appearance: PRESENT: no acute distress Head exam: PRESENT: atraumatic, normocephalic Eye exam: PRESENT: EOMI. ABSENT: scleral icterus Neck exam: ABSENT: tracheal deviation Respiratory exam: PRESENT: accessory muscle use - Conversational dyspnea and with some exertion, decreased breath sounds - Bilaterally-no wheezing or rhonchi appreciated-better than yesterday, symmetrical Cardiovascular exam: PRESENT: +S1, +S2 GI/Abdominal exam: PRESENT: normal bowel sounds, soft. ABSENT: tenderness Extremities exam: ABSENT: pedal edema Neurological exam: PRESENT: alert, awake, oriented to person, oriented to place, CN II-XII grossly intact Skin exam: PRESENT: dry, warm Results Laboratory Results: 01/19/19 09:00 01/19/19 09:00 01/19/19 09:00 Troponin I < 0.012 NT-Pro-B Natriuret Pep 242 Impressions: Chest X-Ray 01/19/19 08:59 IMPRESSION: No evidence of acute cardiopulmonary process. Assessment and Plan - Diagnosis (1) Acute on chronic respiratory failure with hypoxia Is this a current diagnosis for this admission?: Yes (2) COPD exacerbation Is this a current diagnosis for this admission?: Yes (3) Hypertension Qualifiers: Hypertension type: unspecified Qualified Code(s): I10 - Essential (primary) hypertension Is this a current diagnosis for this admission?: Yes (4) Tobacco dependence Is this a current diagnosis for this admission?: Yes - Plan Summary Plan Summary: COPD exacerbation-continue with aggressive pulmonary hygiene with nebulizers and inhalers. Currently she is on Solu-Medrol IV-we are hoping to discharge her tomorrow and hence we will start her on prednisone 60 mg tomorrow with taper on discharge. Acute on chronic respiratory failure with hypoxia-still requiring 2 L of oxygen continuously and still having shortness of breath with some accessory muscle use. I think that she has improved but we need to give her another 1 to 2 days. Most likely secondary to COPD exacerbation. Discussed about oxygen saturation of greater than 89% in room air is her target goal. Nursing in room with me she also will try to wean her down from her oxygen of 2 L at this time. Tobacco dependence-counseled her about cessation. She still continues to smoke Hypertension-she is currently on Norvasc-initially her blood pressure meds were on hold-we will restart her losartan/hydrochlorthiazide from tomorrow. Blood pressure currently is slightly elevated. Disposition-we will try to discharge her in 1 to 2 days.
[2019-01-21] MEDS: FLUTICASONE/VILANTEROL 200-25 MCG/DOSE IH SCH (18:45)
[2019-01-22] MEDS: IPRATROPIUM/ALBUTEROL 0.5-2.5 MG/3 ML AMPUL NEB SCH ×3 (00:59→08:43)
[2019-01-22] MEDS ORDERED: (PENDING PHARMACY ID) (Telmisartan/Hydrochlorothiazid [Telmisartan-Hctz 40-12.5 Mg Tb] 1 T PO SCH (10:00)
[2019-01-22] MEDS ORDERED: LOSARTAN POTASSIUM 50 MG TABLET PO SCH (10:00)
[2019-01-22] MEDS ORDERED: HYDROCHLOROTHIAZIDE 12.5 MG TABLET PO SCH (10:00)
[2019-01-22] MEDS ORDERED: PREDNISONE 20 MG TABLET PO SCH (10:00)
--- NOTE | 2019-01-22 10:39 | PDOC DISCHARGE SUMMARY ---
General - Admit/Disc Date/PCP Admission Date/Primary Care Provider: 01/19/19 13:08 PADMINI BOWLING Discharge Date: 01/22/19 - Discharge Diagnosis (1) Acute on chronic respiratory failure with hypoxia Is this a current diagnosis for this admission?: Yes (2) COPD exacerbation Is this a current diagnosis for this admission?: Yes (3) Hypertension Is this a current diagnosis for this admission?: Yes (4) Tobacco dependence Is this a current diagnosis for this admission?: Yes - Additional Information Resuscitation Status: Full Code Discharge Activity: Activity As Tolerated Prescriptions: Azithromycin [Zithromax 250 mg Tablet] 500 mg PO DAILY #3 tablet Guaifenesin [Mucinex Sr 600 mg Tablet.sa] 1,200 mg PO Q12 7 Days #28 tablet.sa Prednisone [Deltasone 20 mg Tablet] 60 mg PO DAILY #15 tablet Home Medications: Albuterol Sulfate [Proair HFA Inhalation Aerosol 8.5 gm MDI] 2 puff IH Q6HP PRN 01/19/19 Albuterol Sulfate [Ventolin 0.083% Neb 2.5 mg/3 mL Ampul] 3 ml NEB 5XD 01/19/19 Amlodipine Besylate [Norvasc 5 mg Tablet] 5 mg PO DAILY 01/19/19 Atenolol [Tenormin 50 mg Tablet] 50 mg PO Q12 01/19/19 Fluticasone/Salmeterol [Advair 250-50 Diskus 14 Dose/Diskus] 1 puff IH Q12 01/19/19 Telmisartan/Hydrochlorothiazid [Telmisartan-Hctz 40-12.5 mg Tb] 1 tab PO DAILY 01/19/19 Tiotropium [place] [Spiriva Handihaler 5 Cap/Kit (18 Mcg/Cap)] 1 puff IH DAILY 0 01/19/19 Azithromycin [Zithromax 250 mg Tablet] 500 mg PO DAILY #3 tablet 01/22/19 Guaifenesin [Mucinex Sr 600 mg Tablet.sa] 1,200 mg PO Q12 7 Days #28 tablet.sa 01/22/19 Prednisone [Deltasone 20 mg Tablet] 60 mg PO DAILY #15 tablet 01/22/19 History of Present Illness History of Present Illness: ROVERTO JOEL is a 68 year old female Hospital Course Hospital Course: 68-year-old female was admitted for COPD exacerbation and was started on aggressive pulmonary hygiene. She was also started on azithromycin for e xacerbation. She was continued on nebulizers, inhalers and Solu-Medrol IV initially. She was requiring 2 L of oxygen although she already takes and has 2 L of oxygen at home at baseline. But she tells me that she only uses it as needed but here she was requiring continuously at 2 L. Her lung sounds have improved although is chronically decreased given her long history of COPD. She continues to smoke although have counseled her on every occasion about cessation. I spoke to her yesterday about possible discharge today and this morning I spoke to her and she is ready for discharge. She denies any chest pain, abdominal pain, nausea/vomiting or dizziness. She states she still feels a little short of breath but much better than yesterday. States that it is worse with exertion. States she is starting to have a little bit of cough although she denies any fever or bringing any mucus up. Discussed about trying Mucinex twice a day for at least a week along with continued prednisone taper and complete a 7-day course of azithromycin. These will be prescribed to her. I also counseled her on using incentive spirometry and a flutter valve at home. She states she has both of those from previous admissions and continue to use those. Counseled her on COPD and following up with her PCP within a week. I also counseled her and advised her to get a carpenter helper maintenance to optimize her care. She had no complaints this morning otherwise and was happy to go home. Unfortunately given the fact that she continues to smoke, most likely she will be back in the hospital quite frequently until she decides to quit smoking. Physical Exam Vital Signs: Temp Pulse Resp BP Pulse Ox 97.4 F 78 16 138/70 H 100 01/22/19 08:51 01/22/19 08:51 01/22/19 08:43 01/22/19 08:51 01/22/19 08:51 Intake & Output 01/21/19 01/22/19 01/23/19 06:59 06:59 06:59 Intake Total 1661 948 Balance 1661 948 Weight 225 lb 12.054 oz 228 lb 2.855 oz General appearance: PRESENT: no acute distress Head exam: PRESENT: atraumatic, normocephalic Eye exam: PRESENT: EOMI. ABSENT: scleral icterus Ear exam: PRESENT: normal external ear exam Mouth exam: PRESENT: moist Neck exam: ABSENT: tracheal deviation Respiratory exam: PRESENT: decreased breath sounds - Bilaterally in both bases, symmetrical. ABSENT: accessory muscle use, retraction, rhonchi, unlabored, wheezes Cardiovascular exam: PRESENT: +S1, +S2 Pulses: PRESENT: +2 pedal pulses bilateral GI/Abdominal exam: PRESENT: normal bowel sounds, soft. ABSENT: tenderness Extremities exam: ABSENT: pedal edema Neurological exam: PRESENT: alert, awake, oriented to person, oriented to place, oriented to time, oriented to situation, CN II-XII grossly intact Skin exam: PRESENT: dry, warm Results Laboratory Results: 01/19/19 09:00 01/19/19 09:00 01/19/19 09:00 Troponin I < 0.012 NT-Pro-B Natriuret Pep 242 Impressions: Chest X-Ray 01/19/19 08:59 IMPRESSION: No evidence of acute cardiopulmonary process. Qualifiers - * PATIENT BEING DISCHARGED WITH ANY OF THE FOLLOWING DIAGNOSIS: No Acute Heart Failure - Is this a Heart Failure Patient?: No Plan Time Spent: Greater than 30 Minutes
[2019-01-22] MEDS ORDERED: GUAIFENESIN 600 MG TABLET.SA PO SCH (11:00)
[2019-01-22 11:29] VITALS: BP 125/65
== END 2019-01-22 11:40 | disposition home health service (06) ==
LOC: ER 08:33 → EH 13:08 → 5 17:48
PROVIDERS: ADMIT Internal Medicine; ATTEND Internal Medicine
DX: J96.21 Acute and chronic respiratory failure with hypoxia (principal); F17.200 Nicotine dependence, unspecified, uncomplicated; J44.1 Chronic obstructive pulmonary disease with (acute) exacerbation; I10 Essential (primary) hypertension; F17.210 Nicotine dependence, cigarettes, uncomplicated; Z79.899 Other long term (current) drug therapy; Z99.81 Dependence on supplemental oxygen; Z86.73 Personal history of transient ischemic attack (TIA), and cerebral infarction without residual deficits
CPT/HCPCS: 93005; 94640 ×5; 99285; 96365; 36415; 87070; 87205; 85025; 87077; 80053; 84484; 87186; 83880; 71045; 93010; G0378 ×4; A9270 ×10; J1644 ×3; J3490 ×5; J2920 ×3; J0696; J7620

== ENCOUNTER → 2019-04-28 | Outpatient (CLI) | payer MEDICARE, MEDICAID ==
--- NOTE | 2019-04-28 14:28 | WOMENS IMAGING REPORT ---
EXAM DESCRIPTION: 3D SCREENING MAMMO BILAT COMPLETED DATE/TIME: 04/28/2019 11:46 am REASON FOR STUDY: Z12.31 SCREENING MAMMO Z12.31 ENCNTR SCREEN MAMMOGRAM FOR MALIGNANT NEOPLASM OF B RE COMPARISON: 2016, 2017 EXAM PARAMETERS: Views: Standard craniocaudal and mediolateral oblique views of each breast recorded using digital acquisition and breast tomosynthesis. Read with the assistance of CAD. .[facility] - [facility] Director Version 9.2 LIMITATIONS: None. FINDINGS: No suspicious masses, suspicious calcifications or architectural distortion. No areas of c oncern. IMPRESSION: NEGATIVE MAMMOGRAM. BIRADS 1. BREAST DENSITY: b. There are scattered areas of fibroglandular density. BIRAD: ASSESSMENT: 1 NEGATIVE RECOMMENDATION: ROUTINE SCREENING COMMENT: The patient has been notified of the results by letter per MQSA requirements. Additional no tification policies are in place for contacting patient with suspicious or incomplete findings. Quality ID #[id number]: The [employer] recommends an annual screening mammogram for women aged 40 years or over. This facility utilizes a reminder system to ensure that all patients receive reminder letters, and/or direct phone calls for appointments. This includes reminders for routine scr eening mammograms, diagnostic mammograms, or other Breast Imaging Interventions when appropriate. Th is patient will be placed in the appropriate reminder system. TECHNICAL DOCUMENTATION: FINDING NUMBER: (1) ASSESSMENT: (1) JOB ID: [id number] [employer]- All Rights Reserved Reading location - IP/workstation name: [email or web address]
== END ==
LOC: WI 11:05
PROVIDERS: ATTEND Nurse Practitioner
DX: Z12.31 Encounter for screening mammogram for malignant neoplasm of breast (principal)
CPT/HCPCS: 77063; 77067

== ENCOUNTER 2020-02-28 08:47 | Emergency (ER) | payer MEDICARE, MEDICAID ==
[2020-02-28 09:15] LABS: ABSOLUTE BASOPHILS # (AUTO) 0.1 10^3/uL (0.0-0.2); ABSOLUTE EOSINOPHILS # (AUTO) 0.6 10^3/uL (0.0-0.6); ABSOLUTE MONOCYTES (AUTO) 0.3 10^3/uL (0.1-1.4); ABSOLUTE NEUT (AUTO) 6.8 10^3/uL (1.7-8.2); BASOPHILS % (AUTO) 0.7 % (0-2); EOSINOPHILS % (AUTO) 7.2 % (0-6); HEMATOCRIT 33.7 % (36.0-47.0); HEMOGLOBIN 11.6 g/dL (12.0-15.5); LYMPHOCYTES % (AUTO) 11.4 % (13-45); MEAN CORPUSCULAR HGB CONC 34.4 g/dL (32.0-36.0); MEAN CORPUSCULAR VOLUME 84 fl (80-97); MONOCYTES % (AUTO) 3.7 % (3-13); PLATELET COUNT 235 10^3/uL (150-450); RED CELL DISTRIBUTION WIDTH 13.9 % (11.5-14.0); TOTAL CELLS COUNTED % (AUTO) 100 %; WHITE BLOOD COUNT 8.9 10^3/uL (4.0-10.5)
[2020-02-28 09:31] LABS: ALBUMIN 3.9 g/dL (3.5-5.0); ALKALINE PHOSPHATASE 102 U/L (38-126); ANION GAP 5 (5-19); ASPARTATE AMINO TRANSFERASE 18 U/L (14-36); BILIRUBIN,DIRECT 0.2 mg/dL (0.0-0.4); BILIRUBIN,TOTAL 0.7 mg/dL (0.2-1.3); BLOOD UREA NITROGEN 14 mg/dL (7-20); CALCIUM 9.1 mg/dL (8.4-10.2); CARBON DIOXIDE 34 mmol/L (22-30); CHLORIDE 100 mmol/L (98-107); GLUCOSE 156 mg/dL (75-110); POTASSIUM 4.1 mmol/L (3.6-5.0); TOTAL PROTEIN 6.2 g/dL (6.3-8.2)
--- NOTE | 2020-02-28 09:32 | ER Document Report ---
ED General - General Chief Complaint: Breathing Difficulty Stated Complaint: DIFFICULTY BREATHING Primary Care Provider: HANK PUENTES FNP [Primary Care Provider] - Follow up as needed Information source: Patient Notes: Patient is a 70-year-old female presenting to the emergency department chief complaint of shortness of breath. Patient states that she has COPD and occasionally will have flares usually with change in weather. Patient states this issue started yesterday without obvious provocation. Patient states it is increasingly difficult to walk even 6 to 10 feet and with that she becomes short of breath. Patient denies change in medications denies nausea vomiting diarrhea fevers chills. No one the patient has been around has been ill. No one that is around the patient currently smokes. TRAVEL OUTSIDE OF THE [place] IN LAST 30 DAYS: No - HPI Onset: Yesterday Onset/Duration: Gradual, Worse Quality of pain: No pain Severity: None Associated symptoms: Leg swelling, Shortness of breath. denies: Nonproductive cough, Productive cough, Diarrhea, Fever, Nausea, Vomiting, Sore throat Exacerbated by: Standing, Movement, Walking, Coughing, Deep breathing Relieved by: Denies Similar symptoms previously: Yes Recently seen / treated by doctor: No - Related Data Allergies/Adverse Reactions: No Known Allergies Allergy (Verified 02/28/20 09:04) Past Medical History - General Information source: Patient - Social History Smoking Status: Former Smoker Chew tobacco use (# tins/day): No Frequency of alcohol use: None Drug Abuse: None Lives with: Family Family History: CAD, Malignancy - Sister with lung cancer, another sister with colon cancer Patient has suicidal ideation: No Patient has homicidal ideation: No - Past Medical History Cardiac Medical History: Reports: Hx Hypercholesterolemia, Hx Hypertension Denies: Hx Congestive Heart Failure, Hx Coronary Artery Disease, Hx Heart Attack Pulmonary Medical History: Reports: Hx Bronchitis, Hx COPD Denies: Hx Asthma, Hx Pneumonia, Hx Tuberculosis Neurological Medical History: Denies: Hx Cerebrovascular Accident, Hx Seizures, Hx Parkinson's Disease Endocrine Medical History: Denies: Hx Diabetes Mellitus Type 1, Hx Diabetes Mellitus Type 2, Hx Hypothyroidism Renal/ Medical History: Denies: Hx End Stage Renal Disease, Hx Kidney Stones, Hx Peritoneal Dialysis GI Medical History: Reports: Hx Gastroesophageal Reflux Disease - has been having heart burn recently. Denies: Hx Cirrhosis Musculoskeletal Medical History: Reports Hx Arthritis, Denies Hx Multiple Scle rosis Psychiatric Medical History: Denies: Hx Bipolar Disorder, Hx Depression, Hx Schizophrenia Surgical Hx: Negative Past Surgical History: Reports: Hx Tubal Ligation - Immunizations Hx Diphtheria, Pertussis, Tetanus Vaccination: No Review of Systems - Review of Systems Notes: REVIEW OF SYSTEMS: CONSTITUTIONAL : Denies fever, chills, or sweats. Denies recent illness. EENT: Denies eye, ear, throat, or mouth pain or symptoms. Denies nasal or sinus congestion. CARDIOVASCULAR: Denies chest pain. RESPIRATORY: Per HPI GASTROINTESTINAL: Denies abdominal pain. Denies nausea, vomiting, or diarrhea. Denies constipation. GENITOURINARY: Denies difficulty urinating, painful urination, burning, frequen cy, or blood in urine. MUSCULOSKELETAL: Denies neck or back pain or joint pain or swelling. SKIN: Denies rash or skin lesions. HEMATOLOGIC : Denies easy bruising or bleeding. NEUROLOGICAL: Denies altered mental status or loss of consciousness. Denies headache. Denies weakness or paralysis or loss of use of either side. Denies problems with gait or speech. Denies sensory or motor loss. PSYCHIATRIC: Denies suicidal or homicidal ideations 10 Systems are negative unless otherwise specified above Physical Exam - Vital signs Vitals: Temp Pulse Resp BP Pulse Ox 98.3 F 67 18 147/71 H 99 02/28/20 08:48 02/28/20 08:48 02/28/20 08:48 02/28/20 08:48 02/28/20 08:48 - Notes Notes: PHYSICAL EXAMINATION: GENERAL: Patient is a pleasant 70-year-old female presenting for shortness of breath at time of presentation patient is in no acute distress HEAD: Atraumatic, normocephalic. EYES: Pupils equal round and reactive to light, extraocular movements intact, sclera anicteric, conjunctiva are normal. ENT: nares patent, oropharynx clear without exudates. Moist mucous membranes. NECK: Normal range of motion, supple without lymphadenopathy, no appreciable JVD LUNGS: Decreased lung sounds in all gusman.. HEART: Tachycardic rate and rhythm without murmurs ABDOMEN: Soft, nontender, normal bowel sounds. No guarding, no rebound. No masses appreciated. EXTREMITIES: Active full range of motion, patient does have 1-2+ edema to lower extremities bilaterally. No cyanosis. 2+ pulses x4 NEUROLOGICAL: No focal neurological deficits. Moves all extremities spontaneously and on command. SKIN: Warm, Dry, and intact. Normal turgor, no rashes or lesions noted. Course - Re-evaluation Re-evalutation: 02/28/20 14:16 Patient has been reevaluated multiple times while in emergency department. Patient has been maintained on a shelter monitor. I did discuss the laboratory EKG and radiologic findings with the patient she is requesting admission secondary to her shortness of breath. I spoke with the hospitalist reviewed the patient's case and they stated that the patient did not meet admission criteria. We did road test the patient and she was able to maintain 92% oxygen saturation on her 2 L of oxygen which she is always on at home. I subsequently talked to the patient's primary care provider and she is agreeable with discharge home and states she will follow-up with the patient at the office tomorrow at 3 PM. The patient was aggravated on finding out that she was going to be discharged I did inform her that she has an appointment tomorrow at 3 PM at her primary office. Patient will be started on a Medrol Dosepak. Patient is stable at time of discharge. - Vital Signs Vital signs: Temp Pulse Resp BP Pulse Ox 98.3 F 67 27 H 126/70 H 98 02/28/20 08:48 02/28/20 08:48 02/28/20 10:01 02/28/20 10:01 02/28/20 10:03 - Laboratory Result Diagrams: 02/28/20 08:52 02/28/20 08:52 Laboratory results interpreted by me: 02/28/20 02/28/20 02/28/20 08:52 08:52 08:52 Hgb 11.6 L Hct 33.7 L Lymph % (Auto) 11.4 L Eos % (Auto) 7.2 H Carbon Dioxide 34 H Glucose 156 H NT-Pro-B Natriuret Pep 221 H Total Protein 6.2 L Urine Blood Ur Leukocyte Esterase 02/28/20 11:05 Hgb Hct Lymph % (Auto) Eos % (Auto) Carbon Dioxide Glucose NT-Pro-B Natriuret Pep Total Protein Urine Blood MODERATE H Ur Leukocyte Esterase TRACE H - Diagnostic Test Radiology reviewed: Reports reviewed - EKG Interpretation by Me EKG shows normal: Sinus rhythm Rate: Normal Rhythm: NSR When compared to previous EKG there are: Previous EKG unavailable Discharge - Discharge Clinical Impression: COPD exacerbation Condition: Stable Disposition: HOME, SELF-CARE Additional Instructions: Take medication as directed starting tomorrow morning. Follow up with Hank Dave at her office tomorrow at 3pm Prescriptions: Methylprednisolone [Medrol Dosepack (4 mg/Tab) 21 Tab/Dosepak] 4 mg PO ASDIR PRN #[email or web address] PRN Reason: Referrals: HANK PUENTES FNP [Primary Care Provider] - Follow up as needed
[2020-02-28] MEDS ORDERED: IPRATROPIUM/ALBUTEROL 0.5-2.5 MG/3 ML AMPUL NEB ONE (09:46)
--- NOTE | 2020-02-28 10:02 | EKG REPORT ---
SEVERITY:- BORDERLINE ECG - SINUS RHYTHM PROBABLE LEFT ATRIAL ABNORMALITY BORDERLINE T ABNORMALITIES, ANT-LAT LEADS : Confirmed by: Peyton Sethi MD 28-Feb-2020 10:01:44
--- NOTE | 2020-02-28 10:09 | RADIOLOGY REPORT (SQ) ---
EXAM DESCRIPTION: CHEST SINGLE VIEW IMAGES COMPLETED DATE/TIME: 02/28/2020 10:00 am REASON FOR STUDY: shortness of breath COMPARISON: 05/17/2019 EXAM PARAMETERS: NUMBER OF VIEWS: One view. TECHNIQUE: Single frontal radiographic view of the chest acquired. RADIATION DOSE: NA LIMITATIONS: None. FINDINGS: LUNGS AND PLEURA: Lung gusman remain hyperexpanded. No consolidation or effusions. No pn eumothorax. MEDIASTINUM AND HILAR STRUCTURES: No masses. Contour normal. HEART AND VASCULAR STRUCTURES: Heart normal in size. Normal vasculature. BONES: No acute findings. HARDWARE: None in the chest. OTHER: No other significant finding. IMPRESSION: NO ACUTE RADIOGRAPHIC FINDING IN THE CHEST. TECHNICAL DOCUMENTATION: JOB ID: [id number] 2010 [employer]- All Rights Reserved Reading location - IP/workstation name: [email or web address]
[2020-02-28 10:55] LABS: INTERNATIONAL RATION (INR) 0.99; PROTHROMBIN TIME 13.3 SEC (11.4-15.4)
[2020-02-28 11:26] LABS: APPEARANCE,URINE CLOUDY; BILIRUBIN,URINE NEGATIVE (NEGATIVE); COLOR,URINE YELLOW; GLUCOSE, URINE NEGATIVE (NEGATIVE); KETONES,URINE NEGATIVE (NEGATIVE); LEUKOCYTE ESTERASE,URINE TRACE (NEGATIVE); NITRITE,URINE NEGATIVE (NEGATIVE); PROTEIN,URINE NEGATIVE (NEGATIVE); URINE SPECIFIC GRAVITY 1.011; UROBILINOGEN,URINE NEGATIVE mg/dL (<2.0)
[2020-02-28 11:36] LABS: NT PRO BNP 221 pg/mL (<125)
[2020-02-28 11:36] LABS: ADD MANUAL MICROSCOPIC YES; WBC,URINE NONE SEEN /HPF
[2020-02-28 11:41] LABS: TROPONIN I < 0.012 ng/mL
[2020-02-28] MEDS ORDERED: METHYLPREDNISOLONE INJ 125 MG/2 ML SDV IV ONE (13:04)
[2020-02-28 16:24] VITALS: BP 140/92
== END 2020-02-28 16:23 | disposition home or self-care (01) ==
LOC: ER 08:47
DX: J44.1 Chronic obstructive pulmonary disease with (acute) exacerbation (principal); Z99.81 Dependence on supplemental oxygen; R06.02 Shortness of breath; I10 Essential (primary) hypertension; R60.0 Localized edema; Z87.891 Personal history of nicotine dependence
CPT/HCPCS: 36415; 71045; 80053; 81001; 82550; 82553; 83690; 83880; 84484; 85025; 85610; 93005; 93010; 94640; 96374; 99285